=== PATIENT | male | born 1980 ===

== ENCOUNTER 2024-06-08 09:27 | Outpatient (AMB) | payer OTHER, SELFPAY ==
--- NOTE | 2024-06-08 09:29 | MHC.OFFVIS ---
Vital Signs 06/08/24 09:37 Height 5 ft 11 in Weight 209 lb BMI 29.1 BP 150/69 H Blood Pressure Location Lt brachial Position Sitting Pulse 70 Pulse Source Pulse Oximeter Intake Visit Reasons: Chronic Back Pain Intake Note: Pain today 09/12 Custom Shoemaker Required: No Accompanied by: Self / Same As Patient Allergies No Known Allergies Allergy (Verified 06/08/24 09:36) Medication List - Last Reconciled 06/08/24 by CRISTIAN Paula carisoprodol 350 mg PO TID diclofenac sodium 50 mg PO BID PRN lidocaine 1.8% 1 patch topical DAILY HPI HPI Chronic Back Pain: Details: Patient is a 44 years old with history of L1 burst fracture after falling from a tree (2102), T12-L2 lumbar fusion, chronic low back pain with left radiculopathy and left upper hand numbness and tingling since 2012, closed rib fracture, closed fracture left femur with surgical repair, presents today for initial evaluation of acute on chronic low back pain with left sided radiculopathy. Reports recent back pain flare up in April 2024 after he moved heavy furniture. He is right hand dominant. 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 Back pain is axial and also radiates into left lateral leg and anterior left mesa with numbness and tingling in his left toes. He also reports chronic numbness and tingling in his left hand since tree accident. Denies previous Neurodiagnostic studies for left upper or lower extremities. Lumbar spine reports are noted below. His pain increases with prolonged walking, standing, changing positions, bending activities, lifting, pulling, twisting, climbing stairs or weather changes. Pain is rated at 5/10 at rest or morning hours and increases in intensity to 8-9/10 after work hours or end of the day. Pain affects his daily activities, functioning, sleep, social activities, mood and quality of life. Patient was provided with physical therapy exercises 2 months ago which he has been completing regularly at home but reports no improvement and increased pain. He also tried TENS unit, massage therapy, heating pad or hot showers, NSAIDs, muscle relaxants, lidocaine and Salonpas patches with continued symptoms. He tried gabapentin and opiods in the past, made him sleepy and angry. Denies any fever, abdominal or groin pain, dizziness, shortness of breath, foot drop, bladder or bowel incontinence or saddle anesthesia. Reports left lower extremity weakness with ambulation.? Location: Lower back radiates down left leg in L4-L5 distribution Duration: Chronic pain since 2012, flare up for past 2-3 months due to heavy lifting Characteristics of symptom or complaint: Throbbing, numbness, tingling, radiating, pulsing, sore, heavy, tight Aggravating or associated factors: Movements, ROM, bending, heavy lifting, sleeping, walking, standing Relieving factors: Ibuprofen, Tylenol, Soma, light duty at work, rest, [place] Treatment: Home PT exercises, TENS unit, massages, h/o back and left femur surgery, PT [facility] Medical History (Updated 06/08/24 @ 11:17 by CRISTIAN Paula) Lumbar degenerative disc disease Numbness and tingling of left upper extremity Obstructive sleep apnea syndrome Hypertrophy tonsils Closed fracture of rib Closed fracture of lumbar vertebra without spinal cord injury (~2012) Closed fracture of femur Chronic back pain Surgical History (Updated 06/08/24 @ 10:54 by CRISTIAN Paula) History of lumbar fusion (~2012) Social History Household Members: Spouse and Children Housing: House Alcohol intake: current Alcohol intake frequency: holidays/special occasions only Patient Tobacco Use Status: Former Tobacco user Current occupational status: employed 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 Alert and oriented. Mood and affect appropriate. Follows and participates in conversation appropriately. Respiratory effort is unlabored. No cough. Able to transition from sit to stand unassisted. Ambulates with bilaterally normal heel strike and toe off, increased pain with left heel standing. General: Yes no CVA tenderness Back/Spine/Pelvis Other: Limited lumbar ROM due to pain. Mildly antalgic gait. No limping. Can flex forward to 75-80 degrees and extend to 5-10 degrees before experiencing lumbar pain. Demonstrates 5/5 right and 4/5 left strength of quadriceps bilaterally as well as flexion/dorsiflexion of bilateral feet against resistance. 2+ pedal pulses bilaterally. Straight leg rise with dorsiflexion positive on the left. +2 right and +1 left patellar and +2 right +1 left achilles reflexes bilaterally. Facet loading test positive bilaterally. Elma sign positive bilaterally, Flynn?s (limited test on the left), Pelvic compression and Stinchfield tests are positive bilaterally. No groin pain with I/E hip rotations. Valsalva maneuver is negative. Back: no CVA tenderness Cervical Spine: cervical ROM normal, No Lhermitte's sign positive, cervical muscular tenderness, pain with cervical ROM (with flexion), No Cervical spine scars present, No Cervical spine tenderness and No step off deformity Thoracic/Lumbar Spine: thoracic and lumbar spine normal to inspection, Thoracic/lumbar spine scar(s), Lasegue's sign positive on the left and diffuse, pain with thoraco-lumbar ROM, paraspinal muscle tenderness on the left greater than right, thoraco-lumbar ROM limited, No thoracic spinal tenderness and lumbar spinal tenderness at L3, at L4 and at L5 Pelvis: no buttock tenderness Sacroiliac joints: bilaterally tender to palpation Extrem General: Yes capillary refill normal, Yes no clubbing, cyanosis or edema and Yes no calf tenderness Results Reviewed Results Reviewed: Assessment & Plan Assessment & Plan (1) Failed back syndrome: Code(s): M96.1 - Postlaminectomy syndrome, not elsewhere classified Category: Medical (2) Failed back syndrome: Code(s): M96.1 - Postlaminectomy syndrome, not elsewhere classified Category: Medical (3) Left lumbar radiculopathy: Code(s): M54.16 - Radiculopathy, lumbar region Category: Medical (4) Lumbosacral spondylosis: Code(s): M47.817 - Spondylosis without myelopathy or radiculopathy, lumbosacral region Category: Medical (5) Numbness and tingling of left upper extremity: Code(s): R20.0 - Anesthesia of skin; R20.2 - Paresthesia of skin Category: Medical (6) Left lumbar radiculopathy: Code(s): M54.16 - Radiculopathy, lumbar region Category: Medical (7) Lumbar degenerative disc disease: Code(s): M51.369 - Other intervertebral disc degeneration, lumbar region without mention of lumbar back pain or lower extremity pain Category: Medical Plan MRI of the lumbar spine to assess for neural integrity and compression and follow up on previous MRI and CT scan findings. Back pain is discogenic, axial and with left sided radiculopathy in L4-L5 distribution. He also has chronic left upper and lower extremity numbness and tingling since tree fall accident in 2012. Will obtain EMG and NVC studies for this. Discussed interventional treatments for axial and radicular low back pain, including diagnostic versus therapeutic injections, neuromodulation with PNS and SCS trials and implants, ITDD, and RFA procedures. Patient will return to the clinic to discuss results of the MRI findings when it is done and consider interventional therapy as indicated. Script provided for oral diclofenac. Side effects and precautions discussed with patient. He will hold other NSAIDs while taking this. All questions and concerns have been answered and patient agreed with the treatment plan. Follow-up for MRI/EMG results and sooner as needed. Orders: Orders MR lumbar spine wo con Today M47.817 - Spondylosis without myelopathy or radiculopathy, lumbosacral region, M54.16 - Radiculopathy, lumbar region, M96.1 - Postlaminectomy syndrome, not elsewhere classified, Z98.1 - Arthrodesis status NE electromyogram (EMG) Today M54.16 - Radiculopathy, lumbar region, R20.0 - Anesthesia of skin, R20.2 - Paresthesia of skin NE nerve conduction velocity Today M54.16 - Radiculopathy, lumbar region, R20.0 - Anesthesia of skin, R20.2 - Paresthesia of skin Medications: New diclofenac sodium 50 mg PO BID PRN 60 tabs 0RF pain G89.29 - Other chronic pain, M54.9 - Dorsalgia, unspecified Coding Level of Care Code New Pt Level 4 (07162) Complex EM visit Add On G2211 Diagnoses Failed back syndrome M96.1 Left lumbar radiculopathy M54.16 Lumbosacral spondylosis M47.817 Numbness and tingling of left upper extremity R20.0; R20.2 Lumbar degenerative disc disease M51.369
[2024-06-08 09:37] VITALS: BP 150/69; PULSE 70; BMI 29.1
--- OUTSIDE RECORDS SUMMARY | 2024-06-08 09:54 | XMS_ITS | Continuity of Care Document ---
Author Organization [facility] Primary [facility] [place] Address [address] [place] [address]- Care Team Providers Care Teacher'S Aide Name Role Phone Memo GREEN, Deep Primary [id number] Date[facility]s): 04/16/24 - 05/16/24 [facility] [place] [place], [place] [address] Encounter Type: Triage Allergies, Adverse Reactions, Alerts No Known Allergies Medications carisoprodol 350 mg oral tablet 350 mg, 1, tablet, By Mouth, 3 times a day, for 14 days, # 42 tablet, Refills 2, Tot. Refills 2, Acute 05/27/24 10:19:00 AM EST, 04/15/24 10:19:00 AM EST, Route to Pharmacy Electronically, [id number], Partial fill upon patient request if the prescription is for a schedule II opioid drug., 182, cm, 04/15/24 9:28:00 EST, Height Start Date: 04/15/24 Stop Date: 05/27/24 Status: Ordered Quantity: 42.0 Unit: tablet Repeat number: 3 Problem List Condition Confirmation Course Effective Dates Status Health St atus Informant Chronic back pain greater than 3 months duration Confirmed Active Closed fracture of femur Confirmed Active Closed fracture of lumbar vertebra without spinal cord injury Confirmed Active Closed fracture of rib Confirmed Active Hypertrophy of tonsils Confirmed Active Nasal congestion Confirmed Active Obstructive sleep apnea syndrome Confirmed Active Social History Social History Type Response Smoking Status Former smoker, quit more than 30 days ago entered on: 07/04/23 Sex Sex Representation Male (finding) Patient Care team information Care Team Personnel Name: Deep Hampton MD Position: [facility] Physician - Primary Care Member Role: PCP Address: [address] [place] [address] [place] [address] Telecom: Care Team Related Persons Name: EFREN HERNANDEZ Name: ANGELO HERNANDEZ Insurance Providers Guarantor name: [facility] Health Plan Information #: 1 Payer: [facility] Member Number: NA Policy Number: NA Group Number: NA
--- OUTSIDE RECORDS SUMMARY | 2024-06-08 09:54 | XMS_ITS | Data Portability ---
Author Organization [facility]ATHER[facility] [address] Address [address] [place] [address] Assessment No assessment recorded. Plan of Treatment Reminders Order Date Submit Date Provider Last Modified By Organization Details Last Modified Time Details Appointments None recorded. Lab urinalysis , dipstick 2023 024 [email or web address] [address], [address] [place], [address], 09:33:07 culture, urine 2023 024 [place] [facility] ([facility], [address] [place] [address], [place], [address], 08:05:50 Referral None recorded. Procedures None recorded. Surgeries None recorded. Imaging None recorded. Medication Orders None recorded. Patient TargetsNo targets recorded. Patient Instructions Encounter Date Encounter Id Patient Instructions Last Modified By Organization Details Last Modified Time 02/22/2024 [id number] painful urinatio n (dysuria): care instructions [email or web address] Not available 02/22/2024 09:33:05 Reason for Referral None Reported. Results Created Date Observation Date Name Description Value Unit Range Abnormal Flag Note LastModifiedBy Organization Detail LastModifiedTime 02/22/2002/24/2024 URINE CULTU REMAINOR urine culture, routine FINAL REPORT Not Available [facility] ([facility]) [address] [facility] [address], [place], [address], 02/24/2024 08:05:50 02/22/2002/24/2024 URINE CULTU RE, ROUTI NE result 1 NO GROWTH Not Available [facility] ([facility]) [address] [facility] [address], [place], [address], 02/24/2024 08:05:50 02/22/2002/22/2024 urina lysis , dipst ick Unknown Analyte Yellow Not Available [facility] [address] [place], [address], 02/22/2024 09:25:03 02/22/2002/22/2024 urina lysis , dipst ick Unknown Analyte Clear Not Available [address] [place] [address] [address] [place], [address], 02/22/2024 09:25:03 02/22/2002/22/2024 urina lysis , dipst ick Unknown Analyte Negati ve Not Available [facility] [address] [place], [address], 02/22/2024 09:25:03 02/22/2002/22/2024 urina lysis , dipst ick Unknown Analyte Negati ve Not Available [facility] [place], [address], 02/22/2024 09:25:03 02/22/2002/22/2024 urina lysis , dipst ick Unknown Analyte Negati ve Not Available [address] [place], [address], 02/22/2024 09:25:03 02/22/2002/22/2024 urina lysis , dipst ick Unknown Analyte 1.025 Not Available [address] [place] [address] [address] [place], [address], 02/22/2024 09:25:03 02/22/20 24 02/22/2024 urina lysis , dipst ick Unknown Analyte Negati ve Not Available [address] [place], [address], 02/22/2024 09:25:03 02/22/2002/22/2024 urina lysis , dipst ick Unknown Analyte 6.0 Not Available [address] [address] [place], [address], 02/22/2024 09:25:03 02/22/2002/22/2024 urina lysis , dipst ick Unknown Analyte Negati ve Not Available [address] [place], [address], 02/22/2024 09:25:03 02/22/2002/22/2024 urina lysis , dipst ick Unknown Analyte 0.2 E.U./d L Not Available [address] [place], [address], 02/22/2024 09:25:03 02/22/2002/22/2024 urina lysis , dipst ick Unknown Analyte Negati ve Not Available [address] [place], [address], 02/22/2024 09:25:03 02/22/2002/22/2024 urina lysis , dipst ick Unknown Analyte Negati ve Not Available [address] [place], [address], 02/22/2024 09:25:03 Result Notes None recorded. Problems No Known Problems Medical Equipment None Reported. Allergies No known drug allergies Medications Name Sig Start Date Stop Date Status Note LastModified by Organization Details LastModified Time amoxicillin 500 mg capsule 02/21 completed Not Available Not Available Not Available ibuprofen 800 mg tablet TAKE 1 TABLET BY MOUTH EVERY 4-6 HOURS NEEDED FOR PAIN 02/21 completed Not Available Not Available Not Available methylpredn isolone 4 mg tablets in a dose pack FOLLOW PACKAGE DIRECTION S 02/21 completed Not Available Not Available Not Available hydrocodone 5 mg-acetamin ophen 300 mg tablet TAKE 1 TABLET EVERY 4-6 HOURS NEEDED FOR PAIN. NOT TO EXCEED 8 TABLETS A DAY 02/21 completed Not Available Not Available Not Available Vitals Date Recorded Body height Body mass index (BMI) Body weight Oxygen saturation Oxygen saturation in Arterial blood by Pulse oximetry Heart rate Respiratory rate Body temperature Systolic blood pressure Diastolic blood pressure Provider Name and Address Organization Details Last Updated DateTime 180.34 cm 29 kg/m2 42511.2 1 g 98 % 98 % 68 /min 20 /min 97.8 [degF] 132 mm[Hg] 79 mm[Hg] Anaya MURPHY [facility] 09:10:46 Social History Question Answer Notes LastModified by Pricezaizat ion Details LastModified Time Tobacco Smoking Status Never Smoker Anaya duarte [place] [facility] 02/22/2024 09:09:58 What Is Your Level Of Alcohol Consumption? Occasional Information not available 02/22/2024 How Many Times Per Week Do You Consume Alcohol? Less Than 1 Time Per Week Information not available 02/22/2024 Are You Currently Employed? Yes Information not available 02/22/2024 Have You Had A Flu Shot This Season? No Information not available 02/22/2024 If No, Would You Like A Flu Shot Today? No Information not available 02/22/2024 What Is Your Water Source? City Information not available 02/22/2024 What Is Your Heat Source? Wood Information not available 02/22/2024 Are You Passively Exposed To Smoke? No Information no t available 02/22/2024 Do You Use Any Illicit Or Recreational Drugs? No Information not available 02/22/2024 Have You Recently Traveled Abroad? No Information not available 02/22/2024 Do You Or Have You Ever Used Any Other Forms Of Tobacco Or Nicotine? No Information not available 02/22/2024 Sex: Unknown Functional Status None recorded. Mental Status None recorded. Family History Relationship Description Onset Age of this Age Resolved Age Notes LastModified by Organization Details LastModified Time Father No current problems or disability Not available 02/21 09:07:06 Mother No current problems or disability Not available 02/21 09:07:06 Medical History No medical history recorded. Past Encounters Encounter ID Performer Location Encounter Start Date Encounter Closed Date Diagnosis/Indication Diagnosis SNOMED-CT Code Diagnosis ICD10 Code Diagnosis Note [id number] [address] [facility] [address] [place] [address] 09/08/2017 19:17:19 09/08/2017 21:05:30 [id number] KATHERINE Pinto [address] [facility] [address] [place] [address] 02/22/2024 08:51:14 02/22/2024 09:34:43 Dysuria [id number] R30.0 We are sending out testing for a UTI I would not hesitate to be seen again if you develop:1. Severe Back Pain2. Abdominal Pain3. Nausea and Vomiting4. Penile Discharge or Bleeding5. Fever > 101.0 You symptoms should improve within 72 hours for a typically UTI. If you test positive, and will need treatment will be provide guidance at that time.Remem josé luis, that if you are positive ALL sexual partners will need to be treated even before restarting sexual relations. If you don't you will be re infected. Thank you for using [facility] , if you have any questions or concerns please reach out us. Health Concerns Section Related Observation LastModified by Organization Detai ls LastModified Time None Recorded Concern Status LastModified by Organization Details LastModified Time None Recorded Advance Directives Directive None Recorded Payers Encounter Date Sequence Insurance Name Policy Number Policy Rogers Covered Member ID Rogers Member ID Guarantor Name 09/08/2017 1 [facility] [id number] Luis Eduardo Tesfaye [id number] Luis Eduardo Tesfaye 02/22/2024 1 [facility] IN[employer]MNITY PLAN (PPO) [id number] Nancy Tesfaye [id number] Luis Eduardo Tesfaye Notes Date Note Type Note Provider Name and Address Organization Details Recorded Time 02/22/2024 text/html 43 y/o male here with urinary discomfort for the past few days. 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 KATHERINE Pitno [address] [place], [address], [place] - [facility] 02/22/2024 09:36:02
--- OUTSIDE RECORDS SUMMARY | 2024-06-08 09:54 | XMS_ITS | Continuity of Care Document ---
Author Organization [facility] Address [address] [place] [address]- Care Team Providers Care Body Recall Instructor Name Role Phone Deep Hampton MD Primary Care Physician Encounter [facility] NBR [id number] Date(s): 04/15/24 - 05/15/24 [facility] Care [address] [address] Attending Physician: Shalini Clifton Admitting Physician: AdmShalini de los santos Referring Physician: Admtr ArBryce Encounter Type: Triage Allergies, Adverse Reactions, Alerts No Known Allergies Medications carisoprodol 350 mg oral tablet 350 mg, 1, tablet, By Mouth, 3 times a day, for 14 days, # 42 tablet, Refills 2, Tot. Refills 2, Acute 05/27/24 10:19:00 AM EST, 04/15/24 10:19:00 AM EST, Route to Pharmacy Electronically, [facility] #[id number], Partial fill upon patient request if the [...] Team Personnel Name: Deep Hampton MD Position: [facility] Physician - Primary Care Member Role: PCP Address: [address] [place] [id number] Telecom: Care Team Related Persons Name: EFREN HERNANDEZ Name: ANGELO HERNANDEZ Insurance Providers Guarantor name: OMAR CRESENCIO [facility] Information #: 1 Payer: [facility] Member Number: NA Policy Number: NA Group Number: NA
== END 2024-06-08 10:01 | disposition home or self-care (01) ==
PROVIDERS: PCP Internal Medicine; Referring Provider Internal Medicine; Visit Provider Nurse Practitioner Family
DX: M96.1 Postlaminectomy syndrome, not elsewhere classified (principal); M54.16 Radiculopathy, lumbar region; M47.817 Spondylosis without myelopathy or radiculopathy, lumbosacral region; R20.0 Anesthesia of skin; R20.2 Paresthesia of skin; M51.369 Other intervertebral disc degeneration, lumbar region without mention of lumbar back pain or lower extremity pain
CPT/HCPCS: 99204

== ENCOUNTER → 2024-06-08 09:27 | Outpatient (BNVA) | payer OTHER, SELFPAY | PROVIDERS: PCP Internal Medicine; Referring Provider Internal Medicine; Visit Provider Nurse Practitioner Family ==

== ENCOUNTER → 2024-06-29 18:40 | Outpatient (BNV) | payer OTHER, SELFPAY | PROVIDERS: PCP Internal Medicine; Visit Provider Radiology Diagnostic Radiology | DX: M54.16 Radiculopathy, lumbar region (principal) | CPT/HCPCS: 72148 ==

== ENCOUNTER 2024-06-29 18:41 | Outpatient (REF) | payer OTHER, SELFPAY ==
--- NOTE | ~2024-06-29 | MR_ITS ---
EXAMINATION: MR LUMBAR SPINE WITHOUT CONTRAST CLINICAL INFORMATION: Post laminectomy syndrome. COMPARISON: None available. TECHNIQUE: MRI of the lumbar spine was obtained using routine sequences without contrast. FINDINGS: Last rib-bearing vertebra labeled T12. Paramagnetic field distortion secondary to metallic hardware at T12-L1 suggesting posterior fusion, corpectomy and arthrodesis. No bone marrow STIR signal abnormality. There is a 10 mm hyperintense T2 STIR signal in the posterior L3 vertebra with a faint intrinsic hyperintense T1 signal. Grade 1 retrolisthesis L2-3 and L3-4. The conus medullaris ends at pedicle of L1 with normal signal. The neural elements of filum terminalis demonstrated normal position within the thecal sac without grouping or clumping. No empty thecal sac sign. T12-L1: Postsurgical changes. No disc herniation. No neuroforamina stenosis. L1-2: Post surgical changes. No compression upon neural elements. L2-3: Grade 1 retrolisthesis. Broad-based disc bulging. Facet joint and ligamentum flavum hypertrophy. Reduced AP diameter of the thecal sac and neuroforamina without compression upon neural elements. L3-4: Grade 1 retrolisthesis. Broad-based disc bulging. Facet joint and ligamentum flavum hypertrophy. Reduced AP diameter of the thecal sac and the neural foramina encroaching the neural elements. L4-5: Broad-based disc bulging. Facet joint and ligamentum flavum hypertrophy. Reduced AP diameter of the thecal sac encroaching the neural elements. Bilateral neuroforamina stenosis left greater than right likely encroaching the left L4 exiting nerve root and abutting the left L5. L5-S1: There is a right-sided subarticular and foraminal disc herniation encroaching the right S1 nerve root. Facet joint hypertrophy bilaterally producing the diameter of the neuroforamina. No prevertebral compartment hematoma, mass or fluid collection. Asymmetric volume loss of the left psoas muscle. MR/MR lumbar spine wo con IMPRESSION: Right subarticular and foraminal disc herniation L5-S1 encroaching probably compressing right S1 nerve root. Grade 1 retrolisthesis L2-3 and L3-4. Electronically signed by: Micah Cleaning MD 06/30/2024 08:27 AM [facility]
--- OUTSIDE RECORDS SUMMARY | 2024-06-29 18:54 | XMS_ITS | Data Portability ---
Author Organization [facility]ATHER[facility], [address] Address [address] [place] [address] Assessment No assessment recorded. Plan of Treatment Reminders Order Date Submit Date Provider Last Modified By Organization Details Last Modified Time Details Appointments None recorded. Lab urinalysis , dipstick 2023 024 [email or web address] [address], [address] [place], [address], 09:33:07 culture, urine 2023 024 [place] [facility] ([facility], [address] [place] [address], [place], [address], 08:05:50 Referral None recorded. Procedures None recorded. Surgeries None recorded. Imaging None recorded. Medication Orders None recorded. Patient TargetsNo targets recorded. Patient Instructions Encounter Date Encounter Id Patient Instructions Last Modified By Organization Details Last Modified Time 02/22/2024 [id number] painful urinatio n (dysuria): care instructions [email or web address] Not available 02/22/2024 09:33:05 Reason for Referral None Reported. Results Created Date Observation Date Name Description Value Unit Range Abnormal Flag Note LastModifiedBy Organization Detail LastModifiedTime 02/22/2002/24/2024 URINE CULTU REMAINOR urine culture, routine FINAL REPORT Not Available [facility] ([facility]) [address] [facility], [place], [address], 02/24/2024 08:05:50 02/22/2002/24/2024 URINE CULTU RE, ROUTI NE result 1 NO GROWTH Not Available [facility] ([facility]) [address] [facility], [place], [address], 02/24/2024 08:05:50 02/22/2002/22/2024 urina lysis , dipst ick Unknown Analyte Yellow Not Available [facility] [address] [place], [address], 02/22/2024 09:25:03 02/22/2002/22/2024 urina lysis , dipst ick Unknown Analyte Clear Not Available [id number] [place] [address] [address] [place], [address], 02/22/2024 09:25:03 02/22/2002/22/2024 urina lysis , dipst ick Unknown Analyte Negati ve Not Available [facility] [address] [place], [address], 02/22/2024 09:25:03 02/22/2002/22/2024 urina lysis , dipst ick Unknown Analyte Negati ve Not Available [address] [place], [address], 02/22/2024 09:25:03 02/22/2002/22/2024 urina lysis , dipst ick Unknown Analyte Negati ve Not Available [address] [place], [address], 02/22/2024 09:25:03 02/22/2002/22/2024 urina lysis , dipst ick Unknown Analyte 1.025 Not Available [address] [place] [address] [address] [place], [address], 02/22/2024 09:25:03 02/22/20 24 02/22/2024 urina lysis , dipst ick Unknown Analyte Negati ve Not Available [address] [place], [address], 02/22/2024 09:25:03 02/22/2002/22/2024 urina lysis , dipst ick Unknown Analyte 6.0 Not Available [address] [facility] [address] [place], [address], 02/22/2024 09:25:03 02/22/2002/22/2024 urina lysis , dipst ick Unknown Analyte Negati ve Not Available [address] [place], [address], 02/22/2024 09:25:03 02/22/2002/22/2024 urina lysis , dipst ick Unknown Analyte 0.2 E.U./d L Not Available [address] [place], [address], 02/22/2024 09:25:03 02/22/2002/22/2024 urina lysis , dipst ick Unknown Analyte Negati ve Not Available [address] [place], [address], 02/22/2024 09:25:03 02/22/2002/22/2024 urina lysis , dipst ick Unknown Analyte Negati ve Not Available [address] [place], [address], 02/22/2024 09:25:03 Result Notes None recorded. Problems [...] Last Updated DateTime 180.34 cm 29 kg/m2 76591.2 1 g 98 % 98 % 68 /min 20 /min 97.8 [degF] 132 mm[Hg] 79 mm[Hg] Anaya MURPHY [facility] 09:10:46 Social History Question Answer Notes LastModified by [facility] Details LastModified Time Tobacco Smoking Status Never Smoker Anaya duarte PA [employer] [facility] 02/22/2024 09:09:58 What Is Your Level [...] SNOMED-CT Code Diagnosis ICD10 Code Diagnosis Note [id number] [address] [facility] [address] [place] [address] 09/08/2017 19:17:19 09/08/2017 21:05:30 [id number] KATHERINE Pinto [address] [facility] [address] [place] [address] 02/22/2024 08:51:14 02/22/2024 09:34:43 Dysuria [id number] R30.0 We are sending out testing for [...] be re infected. Thank you for using [facility] [employer] , if you have any questions or concerns please reach out us. Health Concerns Section Related Observation LastModified by Organization Detai ls LastModified Time None Recorded Concern Status LastModified by Organization Details LastModified Time None Recorded Advance Directives Directive None Recorded Payers Encounter Date Sequence Insurance Name Policy Number Policy Rogers Covered Member ID Rogers Member ID Guarantor Name 09/08/2017 1 [facility] [id number] Luis Eduardo Tesfaye [id number] Luis Eduardo Tesfaye 02/22/2024 1 [facility] IN[employer] (PPO) [id number] Nancy Tesfaye [id number] Luis Eduardo Tesfaye Notes Date Note Type Note Provider Name and Address Organization Details Recorded Time 02/22/2024 text/html 43 y/o male here with urinary discomfort for the past few days. 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 KATHERINE Pinto [address] [place], [address], [place] - [facility] 02/22/2024 09:36:02
--- OUTSIDE RECORDS SUMMARY | 2024-06-29 18:55 | XMS_ITS | Patient Health Record ---
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 Name Role Phone CONI LUGO Primary Care Provider Allergies No Known Allergies Reason For Referral No Information Medications Medication SIG (Take, Route, Frequency, Duration) Notes Start Date End Date Status TobraDex 0.3-0.1 % 1 drop into affected eye Ophthalmic every 6 hrs for 5 days 09/21/2019 Not-Taking Paxlovid (300/100) 20 x 150 MG & 10 x 100MG as directed Orally as directed for 5 days Not-Taking Tylenol 8 Hour 650 MG 2 tablets as neede d Orally every 8 hrs Not-Taking Colace Adult Not-Vinay ing Ibuprofen 400 MG 1 tablet with food o r milk as needed Orally Three times a day PRN Active Immunizations Vaccine Route Administration Date Status Comme nts Tdap IM Intramuscular 07/15/2020 Administered Social History Tobacco Use: Social History Observation Description Date Details (start date - stop date) Former Smoker NA - NA Tobacco Use/Smoking Question Answer Notes Are you a former smoker How long has it been since you last smoked? > 10 years Additional Findings: Tobacco Non-User Current no n-smoker Alcohol Screen (Audit-C) Question Answer Notes Did you have a drink contain ing alcohol in the past year? Yes How often did you have a dri nk containing alcohol in the past year? Monthly or less (1 point) How many drinks did you have on a typical day when you were drinking in the past year? 1 or 2 drinks (0 point) How often did you have 6 or more drinks on one occasion in the past year? Never (0 point) Points 1 Interpretation Negative Tobacco use other than smoking: Question Answer Notes Are you an other tobacco user? No Problems Problem Type SNOMED Code ICD Code Onset Dates Problem Status W/U Status Risk Notes Problem Generalized anxiety disorder (87546978) Generalized anxiety disorder (F41.1) Active confirmed Controlled, no medications needed Problem Adjustment disorder with mixed anxiety and depressed mood (258435704) Adjustment disorder with mixed anxiety and depressed mood (F43.23) Active confirmed Started on Venlafaxine. Referred to [facility] for counselling on anger management His insurance not taken by them Stopped venlafaxine and had side effects Doesnt want to try any other meds. 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 educated about diet and to improve, will repeat in a few months and determine need for meds then 11/11/20 states he is being more active and eating better, will repeat blood work, if no improvement educated will need to start medication. Problem Interstitial cystitis (343120258) Interstitial cystitis (N30.10) Active confirmed urinary frequency, slightly cloudy, urine completed yesterday and negative, wbc wnl. will start on amitriptyline 25 mg at HS Problem 731383529 Annual physical exam (Z00.00) Active confirmed Problem 303213060 Difficulty controlling anger (R45.4) Active confirmed Agree to try meds. No counselling. Problem 422927145 Burst fracture of lumbar vertebra with delayed healing (S32.001G) Active confirmed Fell at work 12/03/2012 Problem 505071218 Closed stable burst fracture of twelfth thoracic vertebra, sequela (S22.081S) Active confirmed Problem 72805064235853376 Other closed fracture of second lumbar vertebra, sequela (S32.028S) Active confirmed Problem 383174637 Closed fracture of neck of left femur, sequela (S72.002S) Active confirmed Problem 299598598 Acute bacterial conjunctivitis of both eyes (H10.33) Active confirmed Will give topical antibiotic eye drops. Doesnt look like he has corneal abrasion . Problem 063382681 COVID (U07.1) Active confirmed 01/19/22 41 year old male unvaccinated for Covid. has Covid positive test at home 2 days ago. has same and given Paxlovid Agrees to take Paxlovid Will quarantine at home for 5 days Plan Of Treatment Pending Test Test Name Order Date Urinalysis, Complete 10/07/2017 Urinalysis, Complete 01/19/2022 Urinalysis, Complete 01/28/2023 Lipid Panel 01/28/2023 Lipid Panel 01/19/2022 Lipid Panel 10/07/2017 Lipid Panel 06/09/2018 Chem-Comprehensive 01/28/2023 Chem-Comprehensive 01/19/2022 CBC 01/19/2022 CBC 01/28/2023 CBC WITH AUTO DIFF 10/07/2017 CBC WITH AUTO DIFF 06/09/2018 COMPREHENSIVE METABOLIC PANEL 06/09/2018 COMPREHENSIVE METABOLIC PANEL 10/07/2017 LIPID PROFILE 11/10/2020 Future Test Test Name Order Date Urinalysis, Complete 10/04/2015 Lipid Panel 10/04/2015 CBC 10/04/2015 Chem-Comprehensive 10/04/2015 Urinalysis, Complete 09/27/2016 Lipid Panel 09/27/2016 CBC 09/27/2016 Chem-Comprehensive 09/27/2016 Insurance Providers Payer Name Payer Address Payer Phone Subscriber Number Group Number Insured Name Patient Relationship to Insured Coverage Start Date Coverage End Date [facility] [address] [place] [phone] [id number] Luis Eduardo Tesfaye Self - patient is the insured Medical (General) History Medical History History ICD Code , Nicotine Dependence - Continuous. Stop ped 2009 Chronic back pain. Surgical History Surgery Date(Month/Year) T12-L2 luisa post Fusion wi th rods, screws and spacer done by Dr Guerrero at [facility] on August 30 2015 Left femur ORIF with rods an d screws December 05, [address] [place] [facility] [place]
--- OUTSIDE RECORDS SUMMARY | 2024-06-29 18:55 | XMS_ITS ---
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 Name Role Phone DEEP LUGO Primary Care Provider Allergies No Known Allergies Results Component Value Reference Range Notes Electrocardiogram (EKG) Reviewed date:01/28/2023 11:00:13 AM Interpretation: Performing Lab: Notes/Report: REASON FOR VISIT Annual Visit:, Last Labs: 06/06/20 (NEEDED), Last EKG: N/A (BASELINE NEEDED), Depression/Tobacco/Alcohol Screening Needed Medications Medication SIG (Take, Route, Frequency, Duration) [...] Orally Three times a day PRN Active Social History Tobacco Use: Social History Observation [...] Problem Status W/U Status Risk Notes Problem [id number] Annual physical exam (Z00.00) Active confirmed Vital Signs Height 70.8660 in 01/28/2023 Encounters Encounter Location Date Provider Diagnosis [facility] [address] [place] [address] 01/28/2023 DEEP LUGO Other chronic pain G89.29 ; Annual physical exam Z00.00 ; Generalized anxiety disorder F41.1 and Hyperlipidemia E78.5 Assessments Encounter Date Diagnosis (ICD Code) Assessment Notes Treatment Notes Treatment Clinical Notes Section Notes 01/28/2023 Other chronic pain (ICD-10 - G89.29) Rerred to Pain Management But refused by Workmens Comp 01/21/19 Will refer to [facility] at his request He reused to get the blood work Feels the blood is better in his body then in the test tubes! 01/28/2023 Annual physical exam (ICD-10 - Z00.00) He reused to get the blood work Feels the blood is better in his body then in the test tubes! 01/28/2023 Generalized anxiety disorder (ICD-10 - F41.1) Controlled, no medications needed He reused to get the blood work Feels the blood is better in his body then in the test tubes! 01/28/2023 Hyperlipidemia (ICD-10 - E78.5) 06/07/20- most recent ratio 5.5, previous labs wnl. educated about diet and to improve, will repeat in a few months and determine need for meds then 11/11/20 states he is being more active and eating better, will repeat blood work, if no improvement educated will need to start medication. He reused to get the blood work Feels the blood is better in his body then in the test tubes! Plan Of Treatment Pending Test Test Name Order Date Urinalysis, Complete 01/28/2023 Lipid Panel 01/28/2023 Chem-Comprehensive 01/28/2023 CBC 01/28/2023 Next Appt Details Follow Up: 6 Months, Reason: Progress Notes * Luis Eduardo TESFAYEDOB:1980 ([age] yo M)Acc No.[id number]:01/28/2023 Progress Notes Patient:?Luis Eduardo Tesfaye Provider:?Deep Lugo MD :1980???Age:42 Y???Sex:Male Andres e:01/28/2023 Address:[address] [place], [place] [id number] Subjective: * Chief Complaints: * ???Annual Visit:Last Labs: (NEEDED)Last EKG: N/A (BASELINE NEEDED)Depression/Tobacco/Alcohol Screening Needed * HPI: ???Depression Screening:?PHQ-9?Little interest or pleasure in doing things?Not at all ?Feeling down, depressed, or hopeless?Not at all ?Trouble falling or staying asleep, or sleeping too much?Not at all ?Feeling tired or having little energy?Not at all ?Poor appetite or overeating?Not at all ?Feeling bad about yourself or that you are a failure, or have let yourself or your family down?Not at all ?Trouble concentrating on things, such as reading the newspaper or watching television?Not at all ?Moving or speaking so slowly that other people could have noticed; or the opposite, being so fidgety or restless that you have been moving around a lot more than usual?Not at all ?Thoughts that you would be better off or of hurting yourself in some way?Not at all ?Total Score?0 ???Interim History:? 01/28/23 Lookinh well Wearing T shirt, Jeans and boots and hat. Seen after 2 years Working for [employer] based out of [facility]. 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 Usuallty rest on weekend trying the pain subsides Tries to go on bike ride with son Ganga 6 yrs in [facility]. Dtr Gentry is 18 yr and going to [place] Wants to geta Gokart. 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 Rain aggravates his pain No new issues ?01/19/22 Called for urgent [facility] for Covid infection. Had Covid Positive 2 days ago. Had chills,myalgia , HAZEL, weakness. No loss of taste or smell Has mild diarrhea. Never got Covid vaccine. tested positive and got Paxlovid by me. Judy 17 yr is negative (got vaccinated) and so is Ganga 5 yr. Told to stay out of work for 5 days. ?11/10/20 Medications reviewed and reconciled. Pain something he has been dealing with since he broke his back, learning to live with it. Saw [employer] many years ago when he was fighting with workers comp. They suggested PT for back, thinking about injections but gabapentin would be more beneficial. The more he moves, the more it hurts. Tried to go on disability but denied 3 times, a few years ago. [facility] in [place] was seeing Dr Guerrero. Tried gabapentin made him sleepy and angry. Pain killers made him angry and groggy, does not want to take any medication. 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 ?07/07/20 . Called him at work . At [place]. Follow up visit to determine if nortriptyline 25 mg is working well for his IC. However he feels his body is sluggish but mind is sharp. His dysuria has resolved. ?No other issues . Wants to get a tetanus shot Told to talk to Sissy for the appointment ?06/07/20- Medications reviewed and reconciled. Doing well until first week of jan. Was working in [place] in [employer] [place], [facility], thinks he ended up with UTI. Started as cloudy urine, drank cranberry juice. still discomfort when pees, cloudy, urinary frequency. Educated urine was clear, no s/s of infection, wbc also wnl. 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 Still has back pain all the time but does not take any medications and just anneliese with it. Does not smoke anymore, quit few years ago. has COVID still symptomatic, not feeling well and job is being difficult. Daughter Judy 16 has her drivers permit. Rick 3.5, talking a lot and very active. ?06/09/19 Got denied again by Social Security Told he can do a job sitting down for 8 hours. So now he is looking for a job. ? Got denied for social security disability. Had to appeal for the 3rd time Has a pst specialist Adarsh Olivas. Helped him with his Workmans Compensation It got settled last year. Doesnt want to disclose. Had hearing in Apr 2018. Taking only tylenol., ibuprofen 4 pills tid and also tramadol when severe. Got it from me Ran out Needs refill. ? Stopped Venlafaxine after 6 weeks as it made him very fitzgerald. ? No interval history since October. Busy taking care of Mega 1 years old Cannot do much because of his back pain . Uses a cane to ambulate. Moved to a house they bought in [place]. 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 Got the Parking Handicap form signed by me but forgot to send it in and lost and got a new one ? Daughter Judy is 15 and in 9th grade ? Went to [facility] and saw Dr Blanco a few months ago. Started on Gabapentin . Stopped . Offered PT. Waiting for Workmens Comp to respond. ? Taking Tramadol 2 tablets on bad days. Needs to increase it doing winter and rainy days Gets 50 mg. ? 07/22/19 Appeal got deniedJudge told him to find a job. 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 10 hours shift 5 days , 8 hours on Sundays. Cannot use a cane at work. Works 2 pm to midnight Feels irritated and angry with people. Wants to try something to relieve his pain I discussed that he can try gabapentin which he used in past given by [employer]. Also told he can also add duloxetine at a later date. Agrres to see me at a regular interval. Mega is now with a civil rights investigator for 3 hours. * ROS:?General/Constitutional:?Admits?Change in appetite.?Admits?Chills.?Admits?Fatigue.?Denies?Fever.?Admits?Headache.?Admits?L ightheadedness.?Denies?Sleep disturbance.?Denies?Weight gain.?Denies?Weight loss.?Respiratory:?Denies?Asthma,?denies.?Denies?Breathing pattern.?Denies?Breathing problems,?denies.?Denies?Chest pain.?Denies?Cough.?Denies?Hemoptysis.?Denies?Pain with inspiration.?Denies?Pneumonia,?denies.?Denies?Shortness of breath,?denies.?Denies?Shortness of breath at rest.?Denies?Shortness of breath with exertion.?Denies?Sputum production.?Denies?Tuberculosis,?denies.?Denies?Wheezing.?Cardiovascular:?Denies?Chest pain.?Denies?Chest pain at rest.?Denies?Chest pain with exertion.?Denies?Claudication.?Denies?Cyanosis.?Denies?Difficulty laying flat.?Denies?Dizziness.?Denies?Dyspnea on exertion.?Denies?Fluid accumulation in the legs.?Denies?Heart murmur,?denies.?Denies?Heart problems,?denies.?Denies?High blood pressure,?denies.?Denies?Irregular heartbeat,?denies.?Denies?Orthopnea.?Denies?Palpitations,?denies.?Denies?Rheumat ic fever,?denies.?Denies?Shortness of breath.?Denies?Weakness.?Denies?Weight gain.?Gastrointestinal:?Denies?Abdominal pain.?Denies?Blood in stool.?Denies?Change in bowel habits.?Denies?Colitis,?denies.?Denies?Constipation.?Denies?Decreased appetite.?Denies?Diarrhea.?Denies?Difficulty swallowing.?Denies?Exposure to hepatitis.?Denies?Heartburn.?Denies?Hematemesis.?Denies?Hepatitis,?denies.?Denie s?Nausea.?Denies?Rectal bleeding.?Denies?Stomach problems,?denies.?Denies?Vomiting.?Denies?Weight loss.? * Medical History:? * Surgical History:?T12-L2 ant ero post Fusion with rods, screws and spacer done by Dr Guerrero at [facility] on August 30 2015 Left femur ORIF with rods and screws December 05, [address] Vela at [facility] * Ocular Surgical History:? * Hospitalization/Major Diagno stic Procedure:? * Family History:?FamilyHx: [facility] history of cardiac disorder;No pertinent family history;.? * Social History:?Tobacco Use:?Tobacco Use/Smoking?Are you a?former smoker ?How long has it been since you last smoked??> 10 years ?Additional Findings: Tobacco Non-User?Current non-smoker ?Tobacco use other than smoking?Are you an other tobacco user??No ???Social_Migrated:?SocialHx: Former smoker. ???Drugs/Alcohol:?Alcohol Screen (Audit-C)?Did you have a drink containing alcohol in the past year??Yes ?How often did you have a drink containing alcohol in the past year??Monthly or less (1 point) ?How many drinks did you have on a typical day when you were drinking in the past year??1 or 2 drinks (0 point) ?How often did you have 6 or more drinks on one occasion in the past year??Never (0 point) ?Points?1 ?Interpretation?Negative ?Do you drink alcohol?: none. * Medications:?TakingIbuprofen 400 MG Tablet 1 tablet with food or milk as needed Orally Three times a day, Notes: PRNTaking Ibuprofen 400 MG Tablet 1 tablet with food or milk as needed Orally Three times a day, Notes: PRNNot-TakingPaxlovid (300/100) 20 x 150 MG & 10 x 100MG Tablet Therapy Pack as directed Orally as directedTobraDex 0.3-0.1 % Suspension 1 drop into affected eye Ophthalmic every 6 hrsColace Adult Tylenol 8 Hour 650 MG Tablet Extended Release 2 tablets as needed Orally every 8 hrsMedication List reviewed and reconciled with the patientNot-Taking Paxlovid (300/100) 20 x 150 MG & 10 x 100MG Tablet Therapy Pack as directed Orally as directedNot-Taking TobraDex 0.3-0.1 % Suspension 1 drop into affected eye Ophthalmic every 6 hrsNot-Taking Colace Adult Not-Taking Tylenol 8 Hour 650 MG Tablet Extended Release 2 tablets as needed Orally every 8 hrsMedication List reviewed and reconciled with the patient * Allergies:?N.K.D.A.no[Allerg ies Verified] Objective: * Vitals:?Ht: 70.8660 in. * Examination: ???General Examination: ?GENERAL APPEARANCE:?in no acute distress, well developed, well nourished.?HEAD:?normocephalic, atraumatic.?EYES:?pupils equal, round, reactive to light and accommodation.?EARS:?normal.?ORAL CAVITY:?mucosa moist.?THROAT:?clear.?NECK/THYROID:?neck supple, full range of motion, no cervical lymphadenopathy.?SKIN:?no suspicious lesions, warm and dry.?HEART:?no murmurs, regular rate and rhythm, S1, S2 normal.?LUNGS:?clear to auscultation bilaterally.?ABDOMEN:?normal, bowel sounds present, soft, nontender, nondistended.?EXTREMITIES:?no clubbing, cyanosis, or edema.?NEUROLOGIC:?nonfocal, motor strength normal upper and lower extremities, sensory exam intact.? Assessment: * Assessment: 1.?Other chronic pain - G89. 29, Rerred to Pain Management But refused by Workmens Comp01/21/19 Will refer to [facility] at his request?2.?Annual physical exam - Z00.00 (Primary)?3.?Generalized anxiety disorder - F41.1, Controlled, no medications needed?4.?Hyperlipidemia - E78.5, 06/07/20- most recent ratio 5.5, previous labs wnl. educated about diet and to improve, will repeat in a few months and determine need for meds then11/11/20 states he is being more active and eating better, will repeat blood work, if no improvement educated will need to start medication.? He reused to get the blood w ork Feels the blood is better in his body then in the test tubes!. Plan: * Treatment: 2.?Hyperlipidemia?LAB: Urinalysis, Complete ?LAB: Lipid Panel ?LAB: Chem-Comprehensive ?LAB: CBC ?Imaging: Electrocardiogram (EKG)* Kim Harris 01/28/2023 10:5 9:51 AM > Performed in office today. * Procedure Codes:?81596 -ELEC TROCARDIOGRAM, COMPLETE * Follow Up:?6 Months Care Plan: * Problems:? * Billing Information: * Visit Code:? 51615 Preventive Care Est Pt. Age 40-64. * Procedure Codes:? 94079 -ELECTROCARDIOGRAM, COMPLETE. Care Plan Details* * Sign off status: Completed true * Provider:?Deep Lugo MD Date:?2022 Generated for Michelle segundo/Jil/eTransmitting on:?06/29/2024 06:54 PM EST History and Physical Notes * HPI (History of Present Illness) Category Sub-Category Detail Notes Category Not es Interim History 01/28/23 Lookinh well Wearing T shirt, Jeans and boots and hat. Seen after 2 years Working for [employer] based out of [facility]. 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 Usuallty rest on weekend trying the pain subsides Tries to go on bike ride with son Ganga 6 yrs in [facility]. Dtr Gentry is 18 yr and going to [place] Wants to geta Gokart. 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 Rain aggravates his pain No new issues 01/19/22 Called for urgent [facility] for Covid infection. Had Covid Positive 2 days ago. Had chills,myalgia , HAZEL, weakness. No loss of taste or smell Has mild diarrhea. Never got Covid vaccine. tested positive and got Paxlovid by me. Judy 17 yr is negative (got vaccinated) and so is Ganga 5 yr. Told to stay out of work for 5 days. 11/10/20 Medications reviewed and reconciled. Pain something he has been dealing with since he broke his back, learning to live with it. Saw [employer] many years ago when he was fighting with workers comp. They suggested PT for back, thinking about injections but gabapentin would be more beneficial. The more he moves, the more it hurts. Tried to go on disability but denied 3 times, a few years ago. [facility] in [place] was seeing Dr Guerrero. Tried gabapentin made him sleepy and angry. Pain killers made him angry and groggy, does not want to take any medication. 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 07/07/20 . Called him at work . At [place]. Follow up visit to determine if nortriptyline 25 mg is working well for his IC. However he feels his body is sluggish but mind is sharp. His dysuria has resolved. No other issues . Wants to get a tetanus shot Told to talk to Sissy for the appointment 06/07/20- Medications reviewed and reconciled. Doing well until first week of janaury. Was working in [place] in [employer] [facility], [facility], thinks he ended up with UTI. Started as cloudy urine, drank cranberry juice. still discomfort when pees, cloudy, urinary frequency. Educated urine was clear, no s/s of infection, wbc also wnl. 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 Still has back pain all the time but does not take any medications and just anneliese with it. Does not smoke anymore, quit few years ago. has COVID still symptomatic, not feeling well and job is being difficult. Daughter Judy 16 has her drivers permit. Rick 3.5, talking a lot and very active. 06/09/19 Got denied again by Social Security Told he can do a job sitting down for 8 hours. So now he is looking for a job. Got denied for social security disability. Had to appeal for the 3rd time Has a pst specialist Adarsh Olivas. Helped him with his Workmans Compensation It got settled last year. Doesnt want to disclose. Had hearing in Apr 2018. Taking only tylenol., ibuprofen 4 pills tid and also tramadol when severe. Got it from me Ran out Needs refill. Stopped Venlafaxine after 6 weeks as it made him very fitzgerald. No interval history since October. Busy taking care of Mega 2 years old Cannot do much because of his back pain . Uses a cane to ambulate. Moved to a house they bought in [place]. 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 Got the Parking Handicap form signed by me but forgot to send it in and lost and got a new one Daughter Judy is 15 and in 9th grade Went to [facility] and saw Dr Blanco a few months ago. Started on Gabapentin . Stopped . Offered PT. Waiting for Workmens Comp to respond. Taking Tramadol 2 tablets on bad days. Needs to increase it doing winter and rainy days Gets 50 mg. 07/22/19 Appeal got deniedJudge told him to find a job. 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 Cannot use a cane at work. Works 2 pm to midnight Feels irritated and angry with people. Wants to try something to relieve his pain I discussed that he can try gabapentin which he used in past given by [employer]. Also told he can also add duloxetine at a later date. Taz to see me at a regular interval. Mega is now with a civil rights investigator for 3 hours. Depression Screening PHQ-9 Little interest or pleasure in doing things: Not at all Feeling down, depressed, or hopeless: No t at all Trouble falling or staying asleep, or sl eeping too much: Not at all Feeling tired or having little energy: N ot at all Poor appetite or overeating: Not at all Feeling bad about yourself o r that you are a failure, or have let yourself or your family down: Not at all Trouble concentrating on thi ngs, such as reading the newspaper or watching television: Not at all Moving or speaking so slowly that other people could have noticed; or the opposite, being so fidgety or restless that you have been moving around a lot more than usual: Not at all Thoughts that you would be b trever off or of hurting yourself in some way: Not at all Total Score: 0 Examination Category Sub-Category Detail Notes Category Not es General Examination GENERAL APPEARANCE: in no ac assiniboine and sioux distress, well developed, well nourished HEAD: normocephalic, atrau matic EYES: pupils equal, round, reactive to light and accommodation EARS: normal THROAT: clear NECK/THYROID: neck supple, full ra nge of motion, no cervical lymphadenopathy HEART: no murmurs, regular rate and rhythm, S1, S2 normal LUNGS: clear to auscultatio n bilaterally ABDOMEN: normal, bowel sounds present, soft, nontender, nondistended NEUROLOGIC: nonfocal, motor stre ngth normal upper and lower extremities, sensory exam intact SKIN: no suspicious lesion s, warm and dry EXTREMITIES: no clubbing, cyanosi s, or edema ORAL CAVITY: mucosa moist
== END 2024-06-29 18:42 | disposition home or self-care (01) ==
LOC: HO.MRI 18:41
PROVIDERS: PCP Internal Medicine; Visit Provider Nurse Practitioner Family
DX: M96.1 Postlaminectomy syndrome, not elsewhere classified (principal); M54.16 Radiculopathy, lumbar region; M47.817 Spondylosis without myelopathy or radiculopathy, lumbosacral region; Z98.1 Arthrodesis status
CPT/HCPCS: 72148

== ENCOUNTER 2024-07-06 08:19 | Outpatient (AMB) | payer OTHER, SELFPAY ==
--- NOTE | 2024-07-06 08:22 | A.OFFVIS_ITS ---
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 Denies any recent cough, cold, infection, fever or other significant changes in medical history since last office visit. PRIOR: Patient is a 44 years old with history of L1 burst fracture after falling from a tree (2102), T12-L2 lumbar fusion, chronic low back pain with left radiculopathy and left upper hand numbness and tingling since 2012, closed rib fracture, closed fracture left femur with surgical repair, presents today for initial evaluation of acute on chronic low back pain with left sided radiculopathy. Reports recent back pain flare up in April 2024 after he moved heavy furniture. He is right hand dominant. 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 Back pain is axial and also radiates into left lateral leg and anterior left mesa with numbness and tingling in his left toes. He also reports chronic numbness and tingling in his left hand since tree a ccident. Denies previous Neurodiagnostic studies for left upper or lower extremities. Lumbar spine reports are noted below. His pain increases with prolonged walking, standing, changing positions, bending activities, lifting, pulling, twisting, climbing stairs or weather changes. Pain is rated at 5/10 at rest or morning hours and increases in intensity to 8-9/10 after work hours or end of the day. Pain affects his daily activities, functioning, sleep, social activities, mood and quality of life. Patient was provided with physical therapy exercises 2 months ago which he has been completing regularly at home but reports no improvement and increased pain. He also tried TENS unit, massage therapy, heating pad or hot showers, NSAIDs, muscle relaxants, lidocaine and Salonpas patches with continued symptoms. He tried gabapentin and opiods in the past, made him sleepy and angry. Denies any fever, abdominal or groin pain, dizziness, shortness of breath, foot drop, bladder or bowel incontinence or saddle anesthesia. Reports left lower extremity weakness with ambulation. Location: Lower back radiates down left leg in L4-L5 distribution Duration: Chronic pain since 2012, flare up for past 2-3 months due to heavy lifting Characteristics of symptom or complaint: Throbbing, numbness, tingling, radiating, pulsing, sore, heavy, tight Aggravating or associated factors: Movements, ROM, bending, heavy lifting, sleeping, walking, standing Relieving factors: Ibuprofen, Tylenol, Soma, light duty at work, rest, [place] Treatment: Home PT exercises, TENS unit, massages, h/o back and left femur surgery, PT [facility] Medical History Lumbar degenerative disc disease Numbness and tingling of left upper extremity Obstructive sleep apnea syndrome Hypertrophy tonsils Closed fracture of rib Closed fracture of lumbar vertebra without spinal cord injury (~2012) Closed fracture of femur Chronic back pain Surgical History History of lumbar fusion (~2012) Social History Household Members: Spouse and Children Housing: House Alcohol intake: current Alcohol intake frequency: holidays/special occasions only Patient Tobacco Use Status: Former Tobacco user Current occupational status: employed 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 Alert and oriented. Mood and affect appropriate. Follows and participates in conversation appropriately. Respiratory effort is unlabored. No cough. Able to transition from sit to stand unassisted. Ambulates with bilaterally normal heel strike and toe off, increased pain with right heel standing. General: Yes no CVA tenderness Back/Spine/Pelvis Other: Limited lumbar ROM due to pain. Mildly antalgic gait. No limping. Lumbar flexion, bending forward and extension reproduce moderate pain. Demonstrates 5/5 strength of quadriceps bilaterally as well as flexion/dorsiflexion of bilateral feet against resistance. 2+ pedal pulses bilaterally. Straight leg rise with dorsiflexion positive on the right, equivocal on the left. +2 patellar and +1 achilles reflexes bilaterally. Facet loading test positive bilaterally. Elma sign positive bilaterally, Flynn?s (limited test on the left), Pelvic compression and Stinchfield tests are positive bilaterally. No groin pain with I/E hip rotations. Valsalva maneuver is negative. No clonus. Back: no CVA tenderness Cervical Spine: cervical ROM normal, No Lhermitte's sign positive, cervical muscular tenderness, pain with cervical ROM (with flexion), No Cervical spine scars present, No Cervical spine tenderness and No step off deformity Thoracic/Lumbar Spine: thoracic and lumbar spine normal to inspection, Thoracic/lumbar spine scar(s), Lasegue's sign positive (diffuse on the left) on the right and localized, pain with thoraco-lumbar ROM, paraspinal muscle tenderness on the left greater than right, thoraco-lumbar ROM limited, No thoracic spinal tenderness and lumbar spinal tenderness (L4-S1) Pelvis: buttock tenderness on the right and sciatic notch tenderness on the right Sacroiliac joints: bilaterally tender to palpation Extrem General: Yes capillary refill normal, Yes no clubbing, cyanosis or edema and Yes no calf tenderness Results Reviewed Results Reviewed: MR LUMBAR SPINE WITHOUT CONTRAST 06/29/24 CLINICAL INFORMATION: Post laminectomy syndrome. COMPARISON: None available. TECHNIQUE: MRI of the lumbar spine was obtained using routine sequences without contrast. FINDINGS: Last rib-bearing vertebra labeled T12. Paramagnetic field distortion secondary to metallic hardware at T12-L1 suggesting posterior fusion, corpectomy and arthrodesis. No bone marrow STIR signal abnormality. There is a 10 mm hyperintense T2 STIR signal in the posterior L3 vertebra with a faint intrinsic hyperintense T1 signal. Grade 1 retrolisthesis L2-3 and L3-4. The conus medullaris ends at pedicle of L1 with normal signal. The neural elements of filum terminalis demonstrated normal position within the thecal sac without grouping or clumping. No empty thecal sac sign. T12-L1: Postsurgical changes. No disc herniation. No neuroforamina stenosis. L1-2: Post surgical changes. No compression upon neural elements. L2-3: Grade 1 retrolisthesis. Broad-based disc bulging. Facet joint and ligamentum flavum hypertrophy. Reduced AP diameter of the thecal sac and neuroforamina without compression upon neural elements. L3-4: Grade 1 retrolisthesis. Broad-based disc bulging. Facet joint and ligamentum flavum hypertrophy. Reduced AP diameter of the thecal sac and the neural foramina encroaching the neural elements. L4-5: Broad-based disc bulging. Facet joint and ligamentum flavum hypertrophy. Reduced AP diameter of the thecal sac encroaching the neural elements. Bilateral neuroforamina stenosis left greater than right likely encroaching the left L4 exiting nerve root and abutting the left L5. L5-S1: There is a right-sided subarticular and foraminal disc herniation encroaching the right S1 nerve root. Facet joint hypertrophy bilaterally producing the diameter of the neuroforamina. No prevertebral compartment hematoma, mass or fluid collection. Asymmetric volume loss of the left psoas muscle. IMPRESSION: Right subarticular and foraminal disc herniation L5-S1 encroaching probably compressing right S1 nerve root. Grade 1 retrolisthesis L2-3 and L3-4. Assessment & Plan Assessment & Plan (1) Failed back syndrome: Code(s): M96.1 - Postlaminectomy syndrome, not elsewhere classified Category: Medical (2) Lumbar radiculopathy: Code(s): M54.16 - Radiculopathy, lumbar region Category: Medical (3) Lumbar degenerative disc disease: Code(s): M51.369 - Other intervertebral disc degeneration, lumbar region without mention of lumbar back pain or lower extremity pain Category: Medical (4) Lumbosacral spondylosis: Code(s): M47.817 - Spondylosis without myelopathy or radiculopathy, lumbosacral region Category: Medical (5) Numbness and tingling of left upper extremity: Code(s): R20.0 - Anesthesia of skin; R20.2 - Paresthesia of skin Category: Medical Plan Lumbar spine MRI results were reviewed with patient today. Discussed interventional treatments for axial and radicular low back pain, including diagnostic versus therapeutic injections, neuromodulation with PNS and SCS trials and implants, ITDD, and RFA procedures. Schedule Right L5-S1 TFESI with local and fluoroscopy for right sided radiculopathy, consistent with exam and MRI findings. He also has intermittent left leg pain in L4-L5 distribution which has been minimal for past few weeks. Expectations, risks and benefits were reviewed. Patient is aware he will be contacted to schedule this procedure. Script provided for gabapentin. Side effects and precautions discussed with patient. Continue NSAID as needed. All questions and concerns have been answered and patient agreed with the treatment plan. Follow-up after injections and sooner as needed. Medications: New gabapentin 300 mg PO DAILY 30 days 30 caps 0RF pain M51.369 - Other intervertebral disc degeneration, lumbar region without mention of lumbar back pain or lower extremity pain, M54.16 - Radiculopathy, lumbar region, M96.1 - Postlaminectomy syndrome, not elsewhere classified Coding Level of Care Code Est Pt Level 4 (83457) Complex EM visit Add On G2211 Diagnoses Failed back syndrome M96.1 Lumbar radiculopathy M54.16 Lumbar degenerative disc disease M51.369 Lumbosacral spondylosis M47.817 Numbness and tingling of left upper extremity R20.0; R20.2
[2024-07-06 08:25] VITALS: BP 131/67; PULSE 82; O2SAT 98; BMI 28.6
--- OUTSIDE RECORDS SUMMARY | 2024-07-06 08:32 | XMS_ITS | Data Portability ---
Author Organization KATHERINE Robles [facility], [address] Address [address] [place] [address] Assessment No assessment recorded. Plan of Treatment Reminders Order Date Submit Date Provider Last Modified By Organization Details Last Modified Time Details Appointments None recorded. Lab urinalysis , dipstick 2023 024 [email or web address] [facility] [address], [address] [place], [address], 09:33:07 culture, urine 2023 024 [place] [facility] ([facility], [address] [place] [address], [place], [address], 08:05:50 Referral None recorded. Procedures None recorded. Surgeries None recorded. Imaging None recorded. Medication Orders None recorded. Patient TargetsNo targets recorded. Patient Instructions Encounter Date Encounter Id Patient Instructions Last Modified By Organization Details Last Modified Time 02/22/2024 [id number] painful urinatio n (dysuria): care instructions [email or web address] Not available 02/22/2024 09:33:05 Reason for Referral None Reported. Results Created Date Observation Date Name Description Value Unit Range Abnormal Flag Note LastModifiedBy Organization Detail LastModifiedTime 02/22/2002/24/2024 URINE CULTU REMAINOR urine culture, routine FINAL REPORT Not Available [facility] ([facility]) [address], [place], [address], 02/24/2024 08:05:50 02/22/2002/24/2024 URINE CULTU RE, ROUTI NE result 1 NO GROWTH Not Available [facility] ([facility]) [address], [place], [address], 02/24/2024 08:05:50 02/22/2002/22/2024 urina lysis , dipst ick Unknown Analyte Yellow Not Available [facility] [address] [place], [address], 02/22/2024 09:25:03 02/22/2002/22/2024 urina lysis , dipst ick Unknown Analyte Clear Not Available [address] [place] [address] [address] [place], [address], 02/22/2024 09:25:03 02/22/2002/22/2024 urina lysis , dipst ick Unknown Analyte Negati ve Not Available [facility] [address] [place], [address], 02/22/2024 09:25:03 02/22/2002/22/2024 urina lysis , dipst ick Unknown Analyte Negati ve Not Available [address] [place], [address], 02/22/2024 09:25:03 02/22/2002/22/2024 urina lysis , dipst ick Unknown Analyte Negati ve Not Available [address] [place], [address], 02/22/2024 09:25:03 02/22/2002/22/2024 urina lysis , dipst ick Unknown Analyte 1.025 Not Available [address] [place] [address] [address] [place], [address], 02/22/2024 09:25:03 02/22/20 24 02/22/2024 urina lysis , dipst ick Unknown Analyte Negati ve Not Available [address] [place], [address], 02/22/2024 09:25:03 02/22/2002/22/2024 urina lysis , dipst ick Unknown Analyte 6.0 Not Available [address] [facility] [address] [place], [address], 02/22/2024 09:25:03 02/22/2002/22/2024 urina lysis , dipst ick Unknown Analyte Negati ve Not Available [address] [place], [address], 02/22/2024 09:25:03 02/22/2002/22/2024 urina lysis , dipst ick Unknown Analyte 0.2 E.U./d L Not Available [address] [place], [address], 02/22/2024 09:25:03 02/22/2002/22/2024 urina lysis , dipst ick Unknown Analyte Negati ve Not Available [address] [place], [address], 02/22/2024 09:25:03 02/22/2002/22/2024 urina lysis , dipst ick Unknown Analyte Negati ve Not Available [address] [place], [address], 02/22/2024 09:25:03 Result Notes None recorded. Problems [...] Last Updated DateTime 180.34 cm 29 kg/m2 47001.2 1 g 98 % 98 % 68 /min 20 /min 97.8 [degF] 132 mm[Hg] 79 mm[Hg] Anaya MURPHY [employer] 09:10:46 Social History Question Answer Notes LastModified by [employer] ion Details LastModified Time Tobacco Smoking Status Never Smoker Anaya duarte PA [facility] 02/22/2024 09:09:58 What Is Your Level [...] SNOMED-CT Code Diagnosis ICD10 Code Diagnosis Note [id number] [address] [facility] [address] [place] [address] 09/08/2017 19:17:19 09/08/2017 21:05:30 [id number] KATHERINE Pinto [address] [facility] [address] [place] [address] 02/22/2024 08:51:14 02/22/2024 09:34:43 Dysuria [id number] R30.0 We are sending out testing for [...] be re infected. Thank you for using [employer] , if you have any questions or concerns please reach out us. Health Concerns Section Related Observation LastModified by Organization Detai ls LastModified Time None Recorded Concern Status LastModified by Organization Details LastModified Time None Recorded Advance Directives Directive None Recorded Payers Encounter Date Sequence Insurance Name Policy Number Policy Rogers Covered Member ID Rogers Member ID Guarantor Name 09/08/2017 1 [facility] [id number] Luis Eduardo Tesfaye [id number] Luis Eduardo Tesfaye 02/22/2024 1 [facility] IN[facility]MN[facility] (PPO) [id number] Nancy Tesfaye [id number] Luis Eduardo Tesfaye Notes Date Note Type Note Provider Name and Address Organization Details Recorded Time 02/22/2024 text/html 43 y/o male here with urinary discomfort for the past few days. 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 KATHERINE Pinto [address] [place], [address], [place] - [facility] 02/22/2024 09:36:02
--- OUTSIDE RECORDS SUMMARY | 2024-07-06 08:33 | XMS_ITS | Patient Health Record ---
Author Organization [facility] Address [address] [place] [address] Care Team Providers Care Machine Former Name Role Phone CONI LUGO Primary Care Provider [phone] Allergies No Known Allergies Reason For Referral [...] Status Risk Notes Problem Generalized anxiety disorder (68301830) Generalized anxiety disorder (F41.1) Active confirmed Controlled, no medications needed Problem Adjustment disorder with mixed anxiety and depressed mood (231836019) Adjustment disorder with mixed anxiety and depressed mood (F43.23) Active confirmed Started on Venlafaxine. Referred to [facility] for counselling on anger management His insurance not taken by them Stopped venlafaxine and had side effects Doesnt want to try any other meds. Does meditation self taught and works for him Problem Obstructive sleep apnea syndrome (disorder) (85244992) Obstructive sleep apnea (adult) (pediatric) (G47.33) Active confirmed Had CPAP he used in past Had tonsillectomy and adenoidectomy and has not needed the CPAP any more Problem Chronic pain (56107508) Other chronic pain (G89.29) Active confirmed Rerred to Pain Management But refused by Workmens Comp 01/21/19 Will refer to [facility] at his request Problem Hyperlipidemia (23221241) Hyperlipidemia (E78.5) Active confirmed 06/07/20- most recent ratio 5.5, previous labs wnl. educated about diet and to improve, will repeat in a few months and determine need for meds then 11/11/20 states he is being more active and eating better, will repeat blood work, if no improvement educated will need to start medication. Problem Interstitial cystitis (334412065) Interstitial cystitis (N30.10) Active confirmed urinary frequency, slightly cloudy, urine completed yesterday and negative, wbc wnl. will start on amitriptyline 25 mg at HS Problem 997193943 Annual physical exam (Z00.00) Active confirmed Problem 709595566 Difficulty controlling anger (R45.4) Active confirmed Agree to try meds. No counselling. Problem 403163486 Burst fracture of lumbar vertebra with delayed healing (S32.001G) Active confirmed Fell at work 12/03/2012 Problem 186709602 Closed stable burst fracture of twelfth thoracic vertebra, sequela (S22.081S) Active confirmed Problem 61735759505700458 Other closed fracture of second lumbar vertebra, sequela (S32.028S) Active confirmed Problem 652273325 Closed fracture of neck of left femur, sequela (S72.002S) Active confirmed Problem 005474561 Acute bacterial conjunctivitis of both eyes (H10.33) Active confirmed Will give topical antibiotic eye drops. Doesnt look like he has corneal abrasion . Problem 316848292 COVID (U07.1) Active confirmed 01/19/22 41 year [...] Insured Coverage Start Date Coverage End Date [facility] [address] [place] [phone] [id number] Luis Eduardo Tesfaye Self - patient is the insured Medical (General) History Medical History History ICD Code , Nicotine Dependence - Continuous. Stop ped 2009 Chronic back pain. Surgical History Surgery Date(Month/Year) T12-L2 luisa post Fusion wi th rods, screws and spacer done by Dr Guerrero at [facility] on August 30 2015 Left femur ORIF with rods an d screws December 05, [address] Vela at [facility]
--- OUTSIDE RECORDS SUMMARY | 2024-07-06 08:33 | XMS_ITS ---
Author Organization [facility] Address [address] [place] [address] Care Team Providers Care Stocklayer Name Role Phone DEEP LUGO Primary Care [...] Problem Status W/U Status Risk Notes Problem [id number] Annual physical exam (Z00.00) Active confirmed Vital Signs Height 70.8660 in 01/28/2023 Encounters Encounter Location Date Provider Diagnosis [facility] [address] [place] [address] 01/28/2023 DEEP LUGO Other chronic pain G89.29 ; Annual physical exam Z00.00 ; Generalized anxiety disorder F41.1 and Hyperlipidemia E78.5 Assessments Encounter Date Diagnosis (ICD Code) Assessment Notes Treatment Notes Treatment Clinical Notes Section Notes 01/28/2023 Other chronic pain (ICD-10 - G89.29) Rerred to Pain Management But refused by Workmens Comp 01/21/19 Will refer to [facility] Management at his request He reused [...] Luis Eduardo TESFAYEDOB:1980 ([age] yo M)Acc No.[id number]:01/28/2023 Progress Notes Patient:?Luis Eduardo Tesfaye Provider:?Deep Lugo MD :1980???Age:42 Y???Sex:Male Andres e:01/28/2023 Address:[address] [place], [place] [id number] Subjective: * Chief Complaints: * ???Annual Visit:Last [...] hat. Seen after 2 years Working for [employer] based out of [facility]. 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 Usuallty rest on weekend trying the pain subsides Tries to go on bike ride with son Ganga [address] [facility]. Dtr Gentry is 17 yr and going to [facility] Wants to geta Gokart. Takes Ibuprofen prn [...] denied 3 times, a few years ago. [facility] in [place] was seeing Dr Guerrero. Tried gabapentin made him sleepy and angry. Pain killers made him angry and groggy, does not want to take any medication. 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 ?07/07/20 . Called him at work . At [place]. Follow up visit to determine if nortriptyline 25 mg is working well for his IC. However he feels his body is sluggish but mind is sharp. His dysuria has resolved. ?No other issues . Wants to get a tetanus shot Told to talk to Sissy for the appointment ?06/07/20- Medications reviewed and reconciled. Doing well until first week of jan. Was working in [place] in [employer] [employer], thinks he ended up with UTI. Started as cloudy urine, drank cranberry juice. still discomfort when pees, cloudy, urinary frequency. Educated urine was clear, no s/s of infection, wbc also wnl. 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 Helped him with his Workmans [...] Moved to a house they bought in [place]. 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 Got the Parking Handicap form signed by me but forgot to send it in and lost and got a new one ? Daughter Judy is 15 and in 9th grade ? Went to [facility] and saw Dr Blanco a few months ago. Started on Gabapentin . Stopped . Offered PT. Waiting for Workmens Comp to respond. ? Taking Tramadol 2 tablets on bad days. Needs to increase it doing winter and rainy days Gets 50 mg. ? 07/22/19 Appeal got deniedJudge told him to find a job. 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 [...] regular interval. Mega is now with a managed care provider for 3 hours. * ROS:?General/Constitutional:?Admits?Change in appetite.?Admits?Chills.?Admits?Fatigue.?Denies?Fever.?Admits?Headache.?Admits?L [...] and spacer done by Dr Guerrero at [facility] on August 30 2015 Left femur ORIF with rods and screws December 05, [address] Vela at [facility] * Ocular Surgical History:? * Hospitalization/Major Diagno stic Procedure:? * Family History:?FamilyHx: [facility] of cardiac disorder;No pertinent family [...] refused by Workmens Comp01/21/19 Will refer to [facility] Pain Management at his request?2.?Annual physical exam [...] > Performed in office today. * Procedure Codes:?57812 -ELEC TROCARDIOGRAM, COMPLETE * Follow Up:?6 Months Care Plan: * Problems:? * Billing Information: * Visit Code:? 74793 Preventive Care Est Pt. Age 40-64. * Procedure Codes:? 92435 -ELECTROCARDIOGRAM, COMPLETE. Care Plan Details* * Sign off status: Completed true * Provider:?Deep Lugo MD Date:?2022 Generated for Michelle segundo/Jil/eTransmitting on:?07/06/2024 08:32 AM EST History and Physical Notes * HPI (History of Present Illness) Category Sub-Category Detail Notes Category Not es Interim History 01/28/23 Lookinh well Wearing T shirt, Jeans and boots and hat. Seen after 2 years Working for [employer] based out of [facility]. 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 Usuallty rest on weekend trying the pain subsides Tries to go on bike ride with son Ganga [address] [employer]. Dtr Gentry is 17 yr and going to [facility] Wants to geta Gokart. Takes Ibuprofen prn [...] denied 3 times, a few years ago. [facility] in [place] was seeing Dr Guerrero. Tried gabapentin made him sleepy and angry. Pain killers made him angry and groggy, does not want to take any medication. 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 07/07/20 . Called him at work . At [place]. Follow up visit to determine if nortriptyline 25 mg is working well for his IC. However he feels his body is sluggish but mind is sharp. His dysuria has resolved. No other issues . Wants to get a tetanus shot Told to talk to Sissy for the appointment 06/07/20- Medications reviewed and reconciled. Doing well until first week of janaury. Was working in [place] in [employer] [employer], thinks he ended up with UTI. Started as cloudy urine, drank cranberry juice. still discomfort when pees, cloudy, urinary frequency. Educated urine was clear, no s/s of infection, wbc also wnl. 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 Helped him with his Workmans [...] Moved to a house they bought in [place]. 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 Got the Parking Handicap form signed by me but forgot to send it in and lost and got a new one Daughter Judy is 15 and in 9th grade Went to [facility] and saw Dr Blanco a few months ago. Started on Gabapentin . Stopped . Offered PT. Waiting for Workmens Comp to respond. Taking Tramadol 2 tablets on bad days. Needs to increase it doing winter and rainy days Gets 50 mg. 07/22/19 Appeal got deniedJudge told him to find a job. 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 [...] regular interval. Mega is now with a managed care provider for 3 hours. Depression Screening PHQ-9 Little [...] General Examination GENERAL APPEARANCE: in no ac squaxin distress, well developed, well nourished HEAD: normocephalic, [...]
== END 2024-07-06 08:58 | disposition home or self-care (01) ==
PROVIDERS: PCP Internal Medicine; Visit Provider Nurse Practitioner Family
DX: M96.1 Postlaminectomy syndrome, not elsewhere classified (principal); M54.16 Radiculopathy, lumbar region; M51.369 Other intervertebral disc degeneration, lumbar region without mention of lumbar back pain or lower extremity pain; M47.817 Spondylosis without myelopathy or radiculopathy, lumbosacral region; R20.0 Anesthesia of skin; R20.2 Paresthesia of skin
CPT/HCPCS: 99214

== ENCOUNTER 2024-07-15 14:59 | Outpatient (REF) | payer OTHER, SELFPAY ==
--- NOTE | 2024-07-15 15:02 | EMG_ITS ---
Chief complaint: Paresthesia left hand, left lateral thigh. History of L1 burst fracture, status post fusion T12-L1 2012. Reason for referral: Evaluate for radiculopathy Referred by: Vita Rodriguez NP Procedure done: Left upper and lower extremity NCS/EMG Precautions and/or limitations: None The limb temperature was monitored continuously and remained between 32-36 degrees C during the performance of the NCS. Nerve Conduction Studies Anti Sensory Summary Table ?Stim Site NR Onset (ms) Norm Onset (ms) Peak (ms) Norm Peak (ms) O-P Amp (?V) Norm O-P Amp Site1 Site2 Delta-0 (ms) Dist (cm) Ramírez (m/s) Norm Ramírez (m/s) Left Median Anti Sensory (2nd Digit) Wrist ? 2.9 3.6 <3.6 14.1 >10 Wrist 2nd Digit 2.9 14.0 48 Left Radial Anti Sensory (Thumb) Forearm ? 1.4 2.2 <3.1 32.2 Forearm Thumb 1.4 0.0 Left Sural Anti Sensory (Lat Mall) Calf ? 2.8 3.4 <4.0 8.2 >5.0 Calf Lat Mall 2.8 14.0 50 Left Ulnar Anti Sensory (5th Digit) Wrist ? 2.3 2.9 <3.7 21.8 >15.0 Wrist 5th Digit 2.3 14.0 61 Motor Summary Table ?Stim Site NR Onset (ms) Norm Onset (ms) O-P Amp (mV) Norm O-P Amp iAmp (mV) Amp (1st) (%) Site1 Site2 Delta-0 (ms) Dist (cm) Ramírez (m/s) Norm Ramírez (m/s) Left Median Motor (Abd Poll Brev) Wrist ? 3.5 <3.9 12.3 >4.5 13.9 100.0 Elbow Wrist 3.9 21.5 55 >45 Elbow ? 7.4 12.0 13.6 97.6 Left Peroneal Motor (Ext Dig Brev) Ankle ? 3.5 <4.0 6.5 >2.5 7.4 100.0 Ankle Ext Dig Brev 3.5 0.0 B Fib ? 10.9 5.2 6.0 80.0 B Fib Ankle 7.4 37.0 50 >40 Poplt ? 11.7 5.0 5.8 76.9 Poplt B Fib 0.8 5.5 69 >40 Left Tibial Motor (Abd Cooley Brev) Ankle ? 3.1 <5 8.6 >2.5 10.4 100.0 Ankle Abd Cooley Brev 3.1 0.0 Knee ? 14.1 5.4 6.2 62.8 Knee Ankle 11.0 47.0 43 >40 Left Ulnar Motor (Abd Dig Minimi) Wrist ? 2.5 <3.0 11.0 >5 11.5 100.0 B Elbow Wrist 3.4 21.5 63 >45 B Elbow ? 5.9 10.0 10.4 90.9 A Elbow B Elbow 1.8 10.0 56 >45 A Elbow ? 7.7 9.5 9.4 86.4 EMG ?Side Muscle Nerve Root Ins Act Fibs Psw Amp Dur Poly Recrt Int Pat Comment Left AbdHallucis MedPlantar S1-2 Nml Nml Nml Nml Nml 0 Nml Complete Left AntTibialis Dp Br Peron L4-5 Nml Nml Nml Nml Nml 0 Nml Complete Left PostTibialis Tibial L5, S1 Nml Nml Nml Nml Nml 0 Nml Complete Left MedGastroc Tibial S1-2 Nml Nml Nml Nml Nml 0 Nml Complete Left VastusMed Femoral L2-4 Nml Nml Nml Nml Nml 0 Nml Complete Left FlexCarRad Median C6-7 Nml Nml Nml Nml Nml 0 Nml Complete Left Biceps Musculocut C5-6 Nml Nml Nml Nml Nml 0 Nml Complete Left Triceps Radial C6-7-8 Nml Nml Nml Nml Nml 0 Nml Complete Left Deltoid Axillary C5-6 Nml Nml Nml Nml Nml 0 Nml Complete Left BicepsFemS Sciatic L5-S1 Nml Nml Nml Nml Nml 0 Nml Complete FINDINGS: All motor and sensory nerves tested showed normal latencies, amplitudes and conduction velocities. Concentric needle EMG was performed in selected muscles of the left upper and lower extremities. Study did not reveal signs of electric abnormalities as shown in the table above. IMPRESSION: 1. This is a normal study. 2. There is no electrodiagnostic evidence for median neuropathy, ulnar neuropathy, brachial plexopathy, or cervical radiculopathy. 3. There is no electrodiagnostic evidence for peroneal neuropathy, tibial neuropathy, lumbosacral plexopathy, lumbar radiculopathy, or peripheral neuropathy. Thank you for your kind referral. Sharmila Soares MD, SEGUN Board Certified, [place] Board of Physical Medicine and Rehabilitation (ABPMR) Board Certified, [place] Board of Electrodiagnostic Medicine (ABEM) CODIN 63722 x2 MTDD
--- OUTSIDE RECORDS SUMMARY | 2024-07-15 17:36 | XMS_ITS | Data Portability ---
Author Organization [facility], [address] Address [address] [place] [address] Assessment No assessment recorded. Plan of Treatment Reminders Order Date Submit Date Provider Last Modified By Organization Details Last Modified Time Details Appointments None recorded. Lab urinalysis , dipstick 2023 024 [email or web address] [address], [address] [place], [address], 09:33:07 culture, urine 2023 024 [place] [facility] ([facility], [address] [place] [address], [place], [address], 08:05:50 Referral None recorded. Procedures None recorded. Surgeries None recorded. Imaging None recorded. Medication Orders None recorded. Patient TargetsNo targets recorded. Patient Instructions Encounter Date Encounter Id Patient Instructions Last Modified By Organization Details Last Modified Time 02/22/2024 [id number] painful urinatio n (dysuria): care instructions [email or web address] Not available 02/22/2024 09:33:05 Reason for Referral None Reported. Results Created Date Observation Date Name Description Value Unit Range Abnormal Flag Note LastModifiedBy Organization Detail LastModifiedTime 02/22/2002/24/2024 URINE CULTU REMAINOR urine culture, routine FINAL REPORT Not Available [facility] ([facility]) [address], [place], [address], 02/24/2024 08:05:50 02/22/2002/24/2024 URINE CULTU RE, ROUTI NE result 1 NO GROWTH Not Available [facility] ([facility]) [address], [place], [address], 02/24/2024 08:05:50 02/22/2002/22/2024 urina lysis , dipst ick Unknown Analyte Yellow Not Available [facility] [address] [place], [address], 02/22/2024 09:25:03 02/22/2002/22/2024 urina lysis , dipst ick Unknown Analyte Clear Not Available [address] [place] [address] [address] [place], [address], 02/22/2024 09:25:03 02/22/2002/22/2024 urina lysis , dipst ick Unknown Analyte Negati ve Not Available [facility] [address] [place], [address], 02/22/2024 09:25:03 02/22/2002/22/2024 urina lysis , dipst ick Unknown Analyte Negati ve Not Available [address] [place], [address], 02/22/2024 09:25:03 02/22/2002/22/2024 urina lysis , dipst ick Unknown Analyte Negati ve Not Available [address] [place], [address], 02/22/2024 09:25:03 02/22/2002/22/2024 urina lysis , dipst ick Unknown Analyte 1.025 Not Available [address] [place] [address] [address] [place], [address], 02/22/2024 09:25:03 02/22/20 24 02/22/2024 urina lysis , dipst ick Unknown Analyte Negati ve Not Available [address] [place], [address], 02/22/2024 09:25:03 02/22/2002/22/2024 urina lysis , dipst ick Unknown Analyte 6.0 Not Available [address] [address] [place], [address], 02/22/2024 09:25:03 02/22/2002/22/2024 urina lysis , dipst ick Unknown Analyte Negati ve Not Available [address] [place], [address], 02/22/2024 09:25:03 02/22/2002/22/2024 urina lysis , dipst ick Unknown Analyte 0.2 E.U./d L Not Available [address] [place], [address], 02/22/2024 09:25:03 02/22/2002/22/2024 urina lysis , dipst ick Unknown Analyte Negati ve Not Available [address] [place], [address], 02/22/2024 09:25:03 02/22/2002/22/2024 urina lysis , dipst ick Unknown Analyte Negati ve Not Available [address] [place], [address], 02/22/2024 09:25:03 Result Notes None recorded. Problems [...] Last Updated DateTime 180.34 cm 29 kg/m2 81790.2 1 g 98 % 98 % 68 /min 20 /min 97.8 [degF] 132 mm[Hg] 79 mm[Hg] Anaya MURPHY [employer] 09:10:46 Social History Question Answer Notes LastModified by Ridangoizat ion Details LastModified Time Tobacco Smoking Status Never Smoker Anaya duarte PA [email or web address] 02/22/2024 09:09:58 What Is Your Level [...] SNOMED-CT Code Diagnosis ICD10 Code Diagnosis Note [id number] [address] [facility] [address] [place] [address] 09/08/2017 19:17:19 09/08/2017 21:05:30 [id number] KATHERINE Pinto [address] [facility] [address] [place] [address] 02/22/2024 08:51:14 02/22/2024 09:34:43 Dysuria [id number] R30.0 We are sending out testing for [...] be re infected. Thank you for using [facility] , if you have any questions or concerns please reach out us. Health Concerns Section Related Observation LastModified by Organization Detai ls LastModified Time None Recorded Concern Status LastModified by Organization Details LastModified Time None Recorded Advance Directives Directive None Recorded Payers Encounter Date Sequence Insurance Name Policy Number Policy Rogers Covered Member ID Rogers Member ID Guarantor Name 09/08/2017 1 [facility] [id number] Luis Eduardo Tesfaye [id number] 2 Luis Eduardo Tesfaye 02/22/2024 1 [facility] INDEMNITY PLAN (PPO) [id number] Nancy Tesfaye [id number] Luis Eduardo Tesfaye Notes Date Note Type Note Provider Name and Address Organization Details Recorded Time 02/22/2024 text/html 43 y/o male here with urinary discomfort for the past few days. 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 KATHERINE Pinto [address] [place], [address], [place] - [facility] 02/22/2024 09:36:02
--- OUTSIDE RECORDS SUMMARY | 2024-07-15 17:37 | XMS_ITS ---
Author Organization [facility] Address [address] [place] [address] Care Team Providers Care Train Caller Name Role Phone DEEP LUGO Primary Care [...] Problem Status W/U Status Risk Notes Problem [id number] Annual physical exam (Z00.00) Active confirmed Vital Signs Height 70.8660 in 01/28/2023 Encounters Encounter Location Date Provider Diagnosis [facility] [address] [place] [address] 01/28/2023 DEEP LUGO Other chronic pain G89.29 ; Annual physical exam Z00.00 ; Generalized anxiety disorder F41.1 and Hyperlipidemia E78.5 Assessments Encounter Date Diagnosis (ICD Code) Assessment Notes Treatment Notes Treatment Clinical Notes Section Notes 01/28/2023 Other chronic pain (ICD-10 - G89.29) Rerred to Pain Management But refused by Workmens Comp 01/21/19 Will refer to [facility] Management at his request He [...] Luis Eduardo TESFAYEDOB:1980 ([age] yo M)Acc No.[id number]:01/28/2023 Progress Notes Patient:?Luis Eduardo Tesfaye Provider:?Deep Lugo MD :1980???Age:42 Y???Sex:Male Andres e:01/28/2023 Address:[address] [place], [place] [id number] Subjective: * Chief Complaints: * ???Annual Visit:Last [...] hat. Seen after 2 years Working for [employer] based out of [facility]. 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 Usuallty rest on weekend trying the pain subsides Tries to go on bike ride with son Ganga 6 yrs in [facility]. Dtr Gentry is 17 yr and going to [employer] [employer] Wants to geta Gokart. Takes Ibuprofen prn [...] denied 3 times, a few years ago. [facility] in [place] was seeing Dr Guerrero. Tried gabapentin made him sleepy and angry. Pain killers made him angry and groggy, does not want to take any medication. 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 ?07/07/20 . Called him at work . At [place]. Follow up visit to determine if nortriptyline 25 mg is working well for his IC. However he feels his body is sluggish but mind is sharp. His dysuria has resolved. ?No other issues . Wants to get a tetanus shot Told to talk to Sissy for the appointment ?06/07/20- Medications reviewed and reconciled. Doing well until first week of jan. Was working in [place] in [facility], thinks he ended up with UTI. Started as cloudy urine, drank cranberry juice. still discomfort when pees, cloudy, urinary frequency. Educated urine was clear, no s/s of infection, wbc also wnl. 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 Helped him with his Workmans [...] Moved to a house they bought in [place]. 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 Got the Parking Handicap form signed by me but forgot to send it in and lost and got a new one ? Daughter Judy is 15 and in 9th grade ? Went to [facility] and saw Dr Blanco a few months ago. Started on Gabapentin . Stopped . Offered PT. Waiting for Workmens Comp to respond. ? Taking Tramadol 2 tablets on bad days. Needs to increase it doing winter and rainy days Gets 50 mg. ? 07/22/19 Appeal got deniedJudge told him to find a job. 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 [...] regular interval. Mega is now with a single pointed operator for 3 hours. * ROS:?General/Constitutional:?Admits?Change in appetite.?Admits?Chills.?Admits?Fatigue.?Denies?Fever.?Admits?Headache.?Admits?L [...] and spacer done by Dr Guerrero at [facility] on August 30 2015 Left femur ORIF with rods and screws December 05, [address] Vela at [facility] * Ocular Surgical History:? * Hospitalization/Major Diagno stic Procedure:? * Family History:?FamilyHx: [facility] history of cardiac disorder;No pertinent family [...] refused by Workmens Comp01/21/19 Will refer to [facility] Pain Management at his request?2.?Annual physical [...] > Performed in office today. * Procedure Codes:?52170 -ELEC TROCARDIOGRAM, COMPLETE * Follow Up:?6 Months Care Plan: * Problems:? * Billing Information: * Visit Code:? 69178 Preventive Care Est Pt. Age 40-64. * Procedure Codes:? 79918 -ELECTROCARDIOGRAM, COMPLETE. Care Plan Details* * Sign off status: Completed true * Provider:?Deep Lugo MD Date:?2022 Generated for Michelle segundo/Jil/eTransmitting on:?07/15/2024 05:36 PM EDT History and Physical Notes * HPI (History of Present Illness) Category Sub-Category Detail Notes Category Not es Interim History 01/28/23 Lookinh well Wearing T shirt, Jeans and boots and hat. Seen after 2 years Working for [employer] based out of [facility]. 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 Usuallty rest on weekend trying the pain subsides Tries to go on bike ride with son Ganga 6 yrs in [facility]. Dtr Gentry is 17 yr and going to [employer] [facility] Wants to geta Gokart. Takes Ibuprofen prn [...] denied 3 times, a few years ago. [facility] in [place] was seeing Dr Guerrero. Tried gabapentin made him sleepy and angry. Pain killers made him angry and groggy, does not want to take any medication. 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 07/07/20 . Called him at work . At [place]. Follow up visit to determine if nortriptyline 25 mg is working well for his IC. However he feels his body is sluggish but mind is sharp. His dysuria has resolved. No other issues . Wants to get a tetanus shot Told to talk to Sissy for the appointment 06/07/20- Medications reviewed and reconciled. Doing well until first week of janaury. Was working in [place] in [facility], thinks he ended up with UTI. Started as cloudy urine, drank cranberry juice. still discomfort when pees, cloudy, urinary frequency. Educated urine was clear, no s/s of infection, wbc also wnl. 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 Helped him with his Workmans [...] Moved to a house they bought in [place]. 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 Got the Parking Handicap form signed by me but forgot to send it in and lost and got a new one Daughter Judy is 15 and in 9th grade Went to [facility] and saw Dr Blanco a few months ago. Started on Gabapentin . Stopped . Offered PT. Waiting for Workmens Comp to respond. Taking Tramadol 2 tablets on bad days. Needs to increase it doing winter and rainy days Gets 50 mg. 07/22/19 Appeal got deniedJudge told him to find a job. 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 [...] regular interval. Mega is now with a single pointed operator for 3 hours. Depression Screening PHQ-9 Little [...] General Examination GENERAL APPEARANCE: in no ac agata distress, well developed, well nourished HEAD: normocephalic, [...]
--- OUTSIDE RECORDS SUMMARY | 2024-07-15 17:37 | XMS_ITS | Patient Health Record ---
Author Organization [facility] Address [address] [place] [address] Care Team Providers Care Sybase Developer Name Role Phone CONI LUGO Primary Care [...] Status Risk Notes Problem Generalized anxiety disorder (11879563) Generalized anxiety disorder (F41.1) Active confirmed Controlled, no medications needed Problem Adjustment disorder with mixed anxiety and depressed mood (122160745) Adjustment disorder with mixed anxiety and depressed mood (F43.23) Active confirmed Started on Venlafaxine. Referred to [facility] for counselling on anger management His insurance not taken by them Stopped venlafaxine and had side effects Doesnt want to try any other meds. 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 educated about diet and to improve, will repeat in a few months and determine need for meds then 11/11/20 states he is being more active and eating better, will repeat blood work, if no improvement educated will need to start medication. Problem Interstitial cystitis (294495414) Interstitial cystitis (N30.10) Active confirmed urinary frequency, slightly cloudy, urine completed yesterday and negative, wbc wnl. will start on amitriptyline 25 mg at HS Problem 675797013 Annual physical exam (Z00.00) Active confirmed Problem 943277115 Difficulty controlling anger (R45.4) Active confirmed Agree to try meds. No counselling. Problem 016638383 Burst fracture of lumbar vertebra with delayed healing (S32.001G) Active confirmed Fell at work 12/03/2012 Problem 202483523 Closed stable burst fracture of twelfth thoracic vertebra, sequela (S22.081S) Active confirmed Problem 09732256422994171 Other closed fracture of second lumbar vertebra, sequela (S32.028S) Active confirmed Problem 445460808 Closed fracture of neck of left femur, sequela (S72.002S) Active confirmed Problem 048359478 Acute bacterial conjunctivitis of both eyes (H10.33) Active confirmed Will give topical antibiotic eye drops. Doesnt look like he has corneal abrasion . Problem 136294098 COVID (U07.1) Active confirmed 01/19/22 41 year old male unvaccinated for Covid. has Covid positive test at home 2 days ago. has same and given Paxlovid Agrees to take Paxlovid Will quarantine at home for 5 days Plan Of Treatment Pending Test Test Name Order Date Urinalysis, Complete 10/07/2017 Urinalysis, Complete 01/28/2023 Urinalysis, Complete 01/19/2022 Lipid Panel 01/19/2022 Lipid Panel 01/28/2023 Lipid Panel 10/07/2017 Lipid Panel 06/09/2018 Chem-Comprehensive 01/19/2022 Chem-Comprehensive 01/28/2023 CBC 01/28/2023 CBC 01/19/2022 CBC WITH AUTO DIFF 10/07/2017 CBC WITH [...] Insured Coverage Start Date Coverage End Date [facility] [address] [place] [phone] [id number] Luis Eduardo Tesfaye Self - patient is the insured Medical (General) History Medical History History ICD Code , Nicotine Dependence - Continuous. Stop ped 2009 Chronic back pain. Surgical History Surgery Date(Month/Year) T12-L2 luisa post Fusion wi th rods, screws and spacer done by Dr Guerrero at [facility] on August 30 2015 Left femur ORIF with rods an d screws December 05, [address] Vela [facility]
== END 2024-07-15 15:00 | disposition home or self-care (01) ==
LOC: HO.NEURO 14:59
PROVIDERS: PCP Internal Medicine; Visit Provider Nurse Practitioner Family
DX: M54.16 Radiculopathy, lumbar region (principal); R20.0 Anesthesia of skin; R20.2 Paresthesia of skin
CPT/HCPCS: 95886; 95910

== ENCOUNTER → 2024-07-15 15:02 | Outpatient (BNV) | payer OTHER, SELFPAY | PROVIDERS: PCP Internal Medicine; Visit Provider Physical Medicine & Rehabilitation | DX: R20.2 Paresthesia of skin (principal) | CPT/HCPCS: 95886; 95910 ==

== ENCOUNTER 2024-08-06 08:07 | Outpatient (REF) | payer OTHER, SELFPAY ==
--- NOTE | ~2024-08-06 | FL_ITS ---
EXAMINATION: FL GUIDANCE ONLY HISTORY: M54.16 - Radiculopathy, lumbar region COMPARISON: None available. TECHNIQUE: Fluoroscopy time: 0.1 minutes. Cumulative Dose: 3.05 mGy. DAP: 0.0144 mGym2 Images: 3. FINDINGS: Images demonstrate a needle and contrast material in the region of the right L5-S1 facet joint. FL/FL guidance in treatment room IMPRESSION: Fluoroscopy during procedure. Please see procedure report for additional information. Electronically signed by: Mario Zamora MD 08/07/2024 07:32 AM EDT
--- OUTSIDE RECORDS SUMMARY | 2024-08-06 08:14 | XMS_ITS | Data Portability ---
Author Organization [facility], [address] Address [address] [place] [address] Assessment No assessment recorded. Plan of Treatment Reminders Order Date Submit Date Provider Last Modified By Organization Details Last Modified Time Details Appointments None recorded. Lab urinalysis , dipstick 2023 024 [email or web address] [address], [address] [place], [address], 09:33:07 culture, urine 2023 024 [place] [facility] ([facility], [address] [place] [address], [place], [address], 08:05:50 Referral None recorded. Procedures None recorded. Surgeries None recorded. Imaging None recorded. Medication Orders None recorded. Patient TargetsNo targets recorded. Patient Instructions Encounter Date Encounter Id Patient Instructions Last Modified By Organization Details Last Modified Time 02/22/2024 [id number] painful urinatio n (dysuria): care instructions [email or web address] Not available 02/22/2024 09:33:05 Reason for Referral None Reported. Results Created Date Observation Date Name Description Value Unit Range Abnormal Flag Note LastModifiedBy Organization Detail LastModifiedTime 02/22/2002/24/2024 URINE CULTU REMAINOR urine culture, routine FINAL REPORT Not Available [facility] ([facility]) [address], [place], [address], 02/24/2024 08:05:50 02/22/2002/24/2024 URINE CULTU RE, ROUTI NE result 1 NO GROWTH Not Available [facility] ([facility]) [address], [place], [address], 02/24/2024 08:05:50 02/22/2002/22/2024 urina lysis , dipst ick Unknown Analyte Yellow Not Available [facility] [address] [place], [address], 02/22/2024 09:25:03 02/22/2002/22/2024 urina lysis , dipst ick Unknown Analyte Clear Not Available [address] [place] [address] [address] [place], [address], 02/22/2024 09:25:03 02/22/2002/22/2024 urina lysis , dipst ick Unknown Analyte Negati ve Not Available [facility] [place], [address], 02/22/2024 09:25:03 02/22/2002/22/2024 urina lysis , dipst ick Unknown Analyte Negati ve Not Available [address] [place], [address], 02/22/2024 09:25:03 02/22/2002/22/2024 urina lysis , dipst ick Unknown Analyte Negati ve Not Available [address] [place], [address], 02/22/2024 09:25:03 02/22/2002/22/2024 urina lysis , dipst ick Unknown Analyte 1.025 Not Available [address] [place] [address] [address] [place], [address], 02/22/2024 09:25:03 02/22/20 24 02/22/2024 urina lysis , dipst ick Unknown Analyte Negati ve Not Available [address] [place], [address], 02/22/2024 09:25:03 02/22/2002/22/2024 urina lysis , dipst ick Unknown Analyte 6.0 Not Available [address] [facility] [address] [place], [address], 02/22/2024 09:25:03 02/22/2002/22/2024 urina lysis , dipst ick Unknown Analyte Negati ve Not Available [address] [place], [address], 02/22/2024 09:25:03 02/22/2002/22/2024 urina lysis , dipst ick Unknown Analyte 0.2 E.U./d L Not Available [address] [place], [address], 02/22/2024 09:25:03 02/22/2002/22/2024 urina lysis , dipst ick Unknown Analyte Negati ve Not Available [address] [place], [address], 02/22/2024 09:25:03 02/22/2002/22/2024 urina lysis , dipst ick Unknown Analyte Negati ve Not Available [address] [place], [address], 02/22/2024 09:25:03 Result Notes None recorded. Problems [...] Last Updated DateTime 180.34 cm 29 kg/m2 11047.2 1 g 98 % 98 % 68 /min 20 /min 97.8 [degF] 132 mm[Hg] 79 mm[Hg] Anaya MURPHY [employer] 09:10:46 Social History Question Answer Notes LastModified by [employer] ion Details LastModified Time Tobacco Smoking Status Never Smoker Anaya duarte PA [facility] 02/22/2024 09:09:58 What Is Your Level [...] SNOMED-CT Code Diagnosis ICD10 Code Diagnosis Note [id number] [address] [facility] [address] [place] [address] 09/08/2017 19:17:19 09/08/2017 21:05:30 [id number] KATHERINE Pinto [address] [facility] [address] [place] [address] 02/22/2024 08:51:14 02/22/2024 09:34:43 Dysuria [id number] R30.0 We are sending out testing for [...] be re infected. Thank you for using [facility] , if you have any questions or concerns please reach out us. Health Concerns Section Related Observation LastModified by Organization Detai ls LastModified Time None Recorded Concern Status LastModified by Organization Details LastModified Time None Recorded Advance Directives Directive None Recorded Payers Encounter Date Sequence Insurance Name Policy Number Policy Rogers Covered Member ID Rogers Member ID Guarantor Name 09/08/2017 1 [facility] [id number] Luis Eduardo Tesfaye [id number] Luis Eduardo Tesfaye 02/22/2024 1 [facility] IN[employer]MNITY PLAN (PPO) [id number] Nancy Tesfaye [id number] Luis Eduardo Tesfaye Notes Date Note Type Note Provider Name and Address Organization Details Recorded Time 02/22/2024 text/html 43 y/o male here with urinary discomfort for the past few days. 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 KATHERINE Pinto [address] [place], [address], [place] - [facility] 02/22/2024 09:36:02
== END 2024-08-06 08:08 | disposition home or self-care (01) ==
LOC: CF 08:07
PROVIDERS: Visit Provider Internal Medicine
DX: M54.16 Radiculopathy, lumbar region (principal)
CPT/HCPCS: 64483; J1100; J2003; Q9967

== ENCOUNTER 2024-08-06 12:53 | Outpatient (AMB) | payer OTHER, SELFPAY ==
[2024-08-06 12:58] VITALS: BP 113/67; PULSE 67; RESP 16; O2SAT 100
--- NOTE | 2024-08-06 12:58 | A.OFFVIS_ITS ---
Vital Signs 08/06/24 12:58 08/06/24 13:27 BP 113/67 117/62 Blood Pressure Location Lt brachial Lt brachial Position Sitting Sitting Respiration 16 16 Pulse 67 55 Pulse Source Pulse Oximeter Pulse Oximeter Pulse Oximetry (%) 100 100 Oxygen Delivery Method Room Air Room Air Intake Visit Reasons: Right L5-S1 TFESI Cloth Trimmer Hand Required: No Allergies No Known Allergies Allergy (Verified 08/06/24 12:59) Medication List - Last Reconciled 08/06/24 by Saige Deras LPN carisoprodol 350 mg PO TID diclofenac sodium 50 mg PO BID PRN gabapentin 300 mg PO DAILY 30 days lidocaine 1.8% 1 patch topical DAILY HPI HPI Right L5-S1 TFESI: Details: Patient presents for scheduled procedure. Denies any recent cough, cold, infection, fever or other significant changes in medical history since last office visit. 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 The patient was placed in the prone position on the fluoroscopy table. The lumbosacral area was prepped with chloraprep, allowed to dry and draped in sterile fashion. Using fluoroscopy, the skin overlying our target was anesthetized with 0.5% lidocaine. A 22 gauge 3.5 inch spinal needle was advanced to the safe triangle in the upper pole of the right L5 foramen. No paresthesias were elicited with needle placement and aspiration was negative for blood and CSF. Correct needle position was confirmed with approximately 1 ml contrast dye (Omnipaque 180 mg/ml) injected under real-time fluoroscopy. No evidence of vascular or intrathecal uptake was seen and there was both epidural and peripheral spread of the contrast agent. 10 mg dexamethasone plus 1 ml containing 0.5% lidocaine was slowly injected. The needle was flushed and removed. The skin was cleansed and a sterile bandages were applied. The patient tolerated the procedure well and no complications were encountered. Following the procedure the patient's vital signs were stable. The patient was discharged home in good condition with post-procedural instructions. Time Out: Immediately prior to the procedure, the following was verbally confirmed that there is a signed consent form and that the correct patient, planned procedure, site and side are consistent with documentation and that necessary equipment and/or blood products are available prior to the start of the case. Complications: none EBL: <5 cc 14670 - Lumbar/Sacral Procedure code (CPT) selection complete Assessment & Plan Assessment & Plan (1) Lumbar radiculopathy: Code(s): M54.16 - Radiculopathy, lumbar region Category: Medical Plan Patient is status post right L5-S1 TFESI. Patient tolerated procedure well and was discharged home in stable condition with discharge instructions. All qu estions were answered. We will follow-up via telephone or in clinic to assess response to therapy. A follow-up appointment was made during today's visit. Orders: Orders FL guidance in treatment room Today M54.16 - Radiculopathy, lumbar region Coding Level of Care Code Procedure Only Diagnoses Lumbar radiculopathy M54.16 CPT Codes Transforaminal Epidural Steroid Inj - TESI 3: 30064 - Lumbar/Sacral ([id number])
[2024-08-06 13:27] VITALS: BP 117/62; PULSE 55; RESP 16; O2SAT 100
== END 2024-08-06 13:40 | disposition home or self-care (01) ==
LOC: HO.PMCPRC 12:53
PROVIDERS: PCP Internal Medicine; Visit Provider Internal Medicine
DX: M54.16 Radiculopathy, lumbar region (principal)
CPT/HCPCS: 64483

== ENCOUNTER 2024-09-10 08:34 | Outpatient (AMB) | payer OTHER, SELFPAY ==
--- NOTE | 2024-09-10 08:35 | A.OFFVIS_ITS ---
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 The chronic low back pain predominantly affects the lumbar region and is rated at 4/10 on average, with variable relief post-injection. The pain is chronic, always present, and ranges between 3-4/10 in intensity. Before the injection, the patient's daily functionality was affected by discomfort, which occasionally decreased post-injection but remained ever- present, particularly exacerbated by excessive movement, physically demanded work or inclement weather. While the patient finds relief with ibuprofen and Tylenol, Soma is utilized for muscle relaxation on as needed basis prescribed by his other provider, and previous physical therapy has been undertaken. Notably, he continues to be in mild to moderate back pain, attributing to continued daily discomfort despite injection, regarding further physical therapy as non- essential due to the physical nature of the patient's employment. At this time, he would like to continue to monitor his back and leg pain for next few months prior to next steps, including PT. Denies any recent cough, cold, infection, fever or any significant changes in medical history since last office visit. Past Procedures: 08/06/24: Right L5-S1 TFESI-60-70% ongoing pain relief PRIOR: Patient is a 44 years old with history of L1 burst fracture after falling from a tree (2102), T12-L2 lumbar fusion, chronic low back pain with left radiculopathy and left upper hand numbness and tingling since 2012, closed rib fracture, closed fracture left femur with surgical repair, presents today for initial evaluation of acute on chronic low back pain with left sided radiculopathy. Reports recent back pain flare up in April 2024 after he moved heavy furniture. He is right hand dominant. 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 Back pain is axial and also radiates into left lateral leg and anterior left mesa with numbness and tingling in his left toes. He also reports chronic numbness and tingling in his left hand since tree accident. Denies previous Neurodiagnostic studies for left upper or lower extre mities. Lumbar spine reports are noted below. His pain increases with prolonged walking, standing, changing positions, bending activities, lifting, pulling, twisting, climbing stairs or weather changes. Pain is rated at 5/10 at rest or morning hours and increases in intensity to 8-9/10 after work hours or end of the day. Pain affects his daily activities, functioning, sleep, social activities, mood and quality of life. Patient was provided with physical therapy exercises 2 months ago which he has been completing regularly at home but reports no improvement and increased pain. He also tried TENS unit, massage therapy, heating pad or hot showers, NSAIDs, muscle relaxants, lidocaine and Salon[place] patches with continued symptoms. He tried gabapentin and opiods in the past, made him sleepy and angry. Denies any fever, abdominal or groin pain, dizziness, shortness of breath, foot drop, bladder or bowel incontinence or saddle anesthesia. Reports left lower extremity weakness with ambulation. Location: Lower back radiates down left leg in L4-L5 distribution Duration: Chronic pain since 2012, flare up for past 2-3 months due to heavy lifting Characteristics of symptom or complaint: Throbbing, numbness, tingling, radiating, pulsing, sore, heavy, tight Aggravating or associated factors: Movements, ROM, bending, heavy lifting, sleeping, walking, standing Relieving factors: Ibuprofen, Tylenol, Soma, light duty at work, rest, [place] Treatment: Home PT exercises, TENS unit, massages, h/o back and left femur surgery, PT PFSH Medical History Lumbar degenerative disc disease Numbness and tingling of left upper extremity Obstructive sleep apnea syndrome Hypertrophy tonsils Closed fracture of rib Closed fracture of lumbar vertebra without spinal cord injury (~2012) Closed fracture of femur Chronic back pain Surgical History History of lumbar fusion (~2012) Social History Household Members: Spouse and Children Housing: House Alcohol intake: current Alcohol intake frequency: holidays/special occasions only Patient Tobacco Use Status: Former Tobacco user Current occupational status: employed 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 Alert and oriented. Mood and affect appropriate. Follows and participates in conversation appropriately. Respiratory effort is unlabored. No cough. Able to transition from sit to stand unassisted. Ambulates with bilaterally normal heel strike and toe off, increased pain with right heel standing. General: Yes no CVA tenderness Back/Spine/Pelvis Other: Limited lumbar ROM due to pain. Mildly antalgic gait. No limping. Lumbar flexion, bending forward and extension reproduce mild-moderate pain. Demonstrates 5/5 strength of quadriceps bilaterally as well as flexion/dorsiflexion of bilateral feet against resistance. 2+ pedal pulses bilaterally. Straight leg rise with dorsiflexion positive on the left. +2 patellar and +1 achilles reflexes bilaterally. Facet loading test positive bilaterally. Elma sign positive bilaterally, Flynn?s, Pelvic compression and Stinchfield tests are positive bilaterally. No groin pain with I/E hip rotations. Valsalva maneuver is negative. Back: no CVA tenderness Cervical Spine: cervical ROM normal, No Lhermitte's sign positive, cervical muscular tenderness, No Cervical spine scars present and No Cervical spine tenderness Thoracic/Lumbar Spine: thoracic and lumbar spine normal to inspection, Thoracic/lumbar spine scar(s), Lasegue's sign positive on the left and diffuse, pain with thoraco-lumbar ROM, paraspinal muscle tenderness on the left greater than right, thoraco-lumbar ROM limited, No thoracic spinal tenderness and lumbar spinal tenderness (L4-S1) Pelvis: buttock tenderness on the right Sacroiliac joints: bilaterally tender to palpation (left>right) Extrem General: Yes capillary refill normal, Yes no clubbing, cyanosis or edema and Yes no calf tenderness Results Reviewed Results Reviewed: MR LUMBAR SPINE WITHOUT CONTRAST 06/29/24 CLINICAL INFORMATION: Post laminectomy syndrome. FINDINGS: Last rib-bearing vertebra labeled T12. Paramagnetic field distortion secondary to metallic hardware at T12-L1 suggesting posterior fusion, corpectomy and arthrodesis. No bone marrow STIR signal abnormality. There is a 10 mm hyperintense T2 STIR signal in the posterior L3 vertebra with a faint intrinsic hyperintense T1 signal. Grade 1 retrolisthesis L2-3 and L3-4. The conus medullaris ends at pedicle of L1 with normal signal. The neural elements of filum terminalis demonstrated normal position within the thecal sac without grouping or clumping. No empty thecal sac sign. T12-L1: Postsurgical changes. No disc herniation. No neuroforamina stenosis. L1-2: Post surgical changes. No compression upon neural elements. L2-3: Grade 1 retrolisthesis. Broad-based disc bulging. Facet joint and ligamentum flavum hypertrophy. Reduced AP diameter of the thecal sac and neuroforamina without compression upon neural elements. L3-4: Grade 1 retrolisthesis. Broad-based disc bulging. Facet joint and ligamentum flavum hypertrophy. Reduced AP diameter of the thecal sac and the neural foramina encroaching the neural elements. L4-5: Broad-based disc bulging. Facet joint and ligamentum flavum hypertrophy. Reduced AP diameter of the thecal sac encroaching the neural elements. Bilateral neuroforamina stenosis left greater than right likely encroaching the left L4 exiting nerve root and abutting the left L5. L5-S1: There is a right-sided subarticular and foraminal disc herniation encroaching the right S1 nerve root. Facet joint hypertrophy bilaterally producing the diameter of the neuroforamina. No prevertebral compartment hematoma, mass or fluid collection. Asymmetric volume loss of the left psoas muscle. IMPRESSION: Right subarticular and foraminal disc herniation L5-S1 encroaching probably compressing right S1 nerve root. Grade 1 retrolisthesis L2-3 and L3-4. Assessment & Plan Assessment & Plan (1) Failed back syndrome: Code(s): M96.1 - Postlaminectomy syndrome, not elsewhere classified Category: Medical (2) Lumbar radiculopathy: Code(s): M54.16 - Radiculopathy, lumbar region Category: Medical (3) Lumbar degenerative disc disease: Code(s): M51.369 - Other intervertebral disc degeneration, lumbar region without mention of lumbar back pain or lower extremity pain Category: Medical (4) Lumbosacral spondylosis: Code(s): M47.817 - Spondylosis without myelopathy or radiculopathy, lumbosacral region Category: Medical Plan Despite relief from a recent right L5-S1 epidural steroid injection, symptom oversight will continue to determine need for further injections. Ibuprofen and Soma for muscle relaxation shows current utility, while lack of gabapentin use remains due to work requirements. The patient declines further physical therapy, aligned with occupational physical demands, and maintains baseline functional status. Early intervention will be considered if symptoms escalate in severity, impacting the right leg. For the left side, any progress in tightness or discomfort requires immediate attention to explore advanced therapeutic options. All questions and concerns have been answered and patient agreed with the treatment plan. Follow-up as needed. Patient was informed and verbally consented to the use of an ambient scribe for clinic note documentation during this visit. Medications: Discontinued gabapentin Discontinued Reason: Patient Completed Course 300 mg PO DAILY 30 days 90 caps 3RF pain M51.369 - Other intervertebral disc degeneration, lumbar region without mention of lumbar back pain or lower extremity pain, M54.16 - Radiculopathy, lumbar region, M96.1 - Postlaminectomy syndrome, not elsewhere classified Coding Level of Care Code Est Pt Level 3 (10132) Complex EM visit Add On G2211 Diagnoses Failed back syndrome M96.1 Lumbar radiculopathy M54.16 Lumbar degenerative disc disease M51.369 Lumbosacral spondylosis M47.817
[2024-09-10 08:38] VITALS: BP 131/62; PULSE 67; O2SAT 98; BMI 26.9
--- OUTSIDE RECORDS SUMMARY | 2024-09-10 08:49 | XMS_ITS | Data Portability ---
Author Organization KATHERINE Robles [facility], [address] Address [address] [place] [address] Assessment No assessment recorded. Plan of Treatment Reminders Order Date Submit Date Provider Last Modified By Organization Details Last Modified Time Details Appointments None recorded. Lab urinalysis , dipstick 2023 024 [email or web address] [address], [address] [place], [address], 09:33:07 culture, urine 2023 024 LOUISE [facility] ([facility], [address] [place] [address], [place], [address], 08:05:50 Referral None recorded. Procedures None recorded. Surgeries None recorded. Imaging None recorded. Medication Orders None recorded. Patient TargetsNo targets recorded. Patient Instructions Encounter Date Encounter Id Patient Instructions Last Modified By Organization Details Last Modified Time 02/22/2024 [id number] painful urinatio n (dysuria): care instructions [email or web address] Not available 02/22/2024 09:33:05 Reason for Referral None Reported. Results Created Date Observation Date Name Description Value Unit Range Abnormal Flag Note LastModifiedBy Organization Detail LastModifiedTime 02/22/2002/24/2024 URINE CULTU REMAINOR urine culture, routine FINAL REPORT Not Available [facility] ([facility]) [address] [facility], [place], [address], 02/24/2024 08:05:50 02/22/2002/24/2024 URINE CULTU RE, ROUTI NE result 1 NO GROWTH Not Available [facility] ([facility]) [address] [facility] [facility], [place], [address], 02/24/2024 08:05:50 02/22/2002/22/2024 urina lysis , dipst ick Unknown Analyte Yellow Not Available [facility] [address] [place], [address], 02/22/2024 09:25:03 02/22/2002/22/2024 urina lysis , dipst ick Unknown Analyte Clear Not Available [address] [place] [address] [address] [place], [address], 02/22/2024 09:25:03 02/22/2002/22/2024 urina lysis , dipst ick Unknown Analyte Negati ve Not Available [facility] [address] [place], [address], 02/22/2024 09:25:03 02/22/2002/22/2024 urina lysis , dipst ick Unknown Analyte Negati ve Not Available [address] [place], [address], 02/22/2024 09:25:03 02/22/2002/22/2024 urina lysis , dipst ick Unknown Analyte Negati ve Not Available [address] [place], [address], 02/22/2024 09:25:03 02/22/2002/22/2024 urina lysis , dipst ick Unknown Analyte 1.025 Not Available [address] [place] [address] [address] [place], [address], 02/22/2024 09:25:03 02/22/20 24 02/22/2024 urina lysis , dipst ick Unknown Analyte Negati ve Not Available [address] [place], [address], 02/22/2024 09:25:03 02/22/2002/22/2024 urina lysis , dipst ick Unknown Analyte 6.0 Not Available [address] [facility] [address] [place], [address], 02/22/2024 09:25:03 02/22/2002/22/2024 urina lysis , dipst ick Unknown Analyte Negati ve Not Available [address] [place], [address], 02/22/2024 09:25:03 02/22/2002/22/2024 urina lysis , dipst ick Unknown Analyte 0.2 E.U./d L Not Available [address] [place], [address], 02/22/2024 09:25:03 02/22/2002/22/2024 urina lysis , dipst ick Unknown Analyte Negati ve Not Available [address] [place], [address], 02/22/2024 09:25:03 02/22/2002/22/2024 urina lysis , dipst ick Unknown Analyte Negati ve Not Available [address] [place], [address], 02/22/2024 09:25:03 Result Notes None recorded. Problems [...] Last Updated DateTime 180.34 cm 29 kg/m2 17737.2 1 g 98 % 98 % 68 /min 20 /min 97.8 [degF] 132 mm[Hg] 79 mm[Hg] Anaya MURPHY Echodio 09:10:46 Social History Question Answer Notes LastModified by Storenvyizat ion Details LastModified Time Tobacco Smoking Status Never Smoker Anaya duarte PA [facility] 02/22/2024 09:09:58 What Is Your Level [...] SNOMED-CT Code Diagnosis ICD10 Code Diagnosis Note [id number] [address] [place] [address] 09/08/2017 19:17:19 09/08/2017 21:05:30 [id number] KATHERINE Pinto [address] [place] [address] 02/22/2024 08:51:14 02/22/2024 09:34:43 Dysuria [id number] R30.0 We are sending out testing for [...] be re infected. Thank you for using [facility] , if you have any questions or concerns please reach out us. Health Concerns Section Related Observation LastModified by Organization Detai ls LastModified Time None Recorded Concern Status LastModified by Organization Details LastModified Time None Recorded Advance Directives Directive None Recorded Payers Insurance Date Sequence Insurance Name Policy Number Policy Rogers Covered Member ID Rogers Member ID Guarantor Name 02/22/2024 1 [facility] IN[facility] (PPO) [id number] Nancy Tesfaye [id number] Luis Eduardo Tesfaye 02/22/2024 1 [facility] [id number] Luis Eduardo Tesfaye [id number] Luis Eduardo Tesfaye 02/22/2024 1 [facility] [id number] Nancy Tesfaye [id number] Luis Eduardo Tesfaye Notes Date Note Type Note Provider Name and Address Organization Details Recorded Time 02/22/2024 text/html 43 y/o male here with urinary discomfort for the past few days. 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 KATHERINE Pinto [address] [place], [address], [place] - [facility] 02/22/2024 09:36:02
== END 2024-09-10 08:51 | disposition home or self-care (01) ==
LOC: HO.PMC 08:34
PROVIDERS: PCP Internal Medicine; Visit Provider Nurse Practitioner Family
DX: M96.1 Postlaminectomy syndrome, not elsewhere classified (principal); M54.16 Radiculopathy, lumbar region; M51.369 Other intervertebral disc degeneration, lumbar region without mention of lumbar back pain or lower extremity pain; M47.817 Spondylosis without myelopathy or radiculopathy, lumbosacral region
CPT/HCPCS: 99213

== ENCOUNTER → 2024-09-10 08:34 | Outpatient (BNVA) | payer OTHER, SELFPAY | PROVIDERS: PCP Internal Medicine; Visit Provider Nurse Practitioner Family ==